=== PATIENT | female | born 1940 | race Caucasian/White ===

== ENCOUNTER → 2019-01-08 10:32 | Outpatient (CLI) | payer MEDICARE, SELFPAY ==
[2019-01-08 12:37] LABS: Add Manual Diff / Slide Review NO; Basophils Absolute Auto 0 /uL (0-100); Basophils Percent Auto 0.5 % (0-2); Eosinophils Absolute Auto 100 /uL (0-450); Eosinophils Percent Auto 1.3 % (2-4); Hemoglobin 16.1 g/dL (12.0-16.0); Lymphocytes Absolute Auto 1900 /uL (1100-4500); Lymphocytes Percent Auto 29.6 % (25-40); Mean Corpuscular HGB Conc 33.6 % (30-36); Mean Corpuscular Hemoglobin 29.6 PG (26-34); Monocytes Absolute Auto 500 /uL (0-900); Monocytes Percent Auto 8.7 % (3-14); Neutrophils Absolute Auto 3800 /uL (1500-7000); Neutrophils Percent Auto 59.9 % (50-75); Platelet Count 305 X10^3/uL (150-400); Red Blood Cell Count 5.46 X10^6/uL (4.0-5.2); Red Cell Distribution Width 13.1 % (11.6-14.8); White Blood Cell Count 6.3 X10^3/uL (4.5-11.0)
[2019-01-08 13:24] LABS: Cholesterol 227 mg/dL (140-199); HDL Cholesterol 55 mg/dL (40-60); LDL Cholesterol Calculated 146 mg/dL (<100); Triglycerides 132 mg/dL (35-150)
[2019-01-08 13:50] LABS: Alanine Aminotransferase 31 IU/L (9-52); Albumin 4.9 g/dL (3.5-5.0); Albumin Globulin Ratio 1.8 (1.0-2.8); Alkaline Phosphatase 78 U/L (38-126); Aspartate Aminotransferase 23 IU/L (14-36); BUN Creatinine Ratio 24.3 (6-22); Bilirubin Total 0.9 mg/dL (0.2-1.3); Blood Urea Nitrogen 17 mg/dL (7-17); Calcium 10.2 mg/dL (8.4-10.2); Carbon Dioxide 29 mmol/L (22-32); Chloride 91 mmol/L (98-107); Estimated Glomerular Filt Rate > 60.0 mL/min (>60); Globulin 2.8 g/dL (1.7-4.1); Glucose 99 mg/dL (80-110); HEMOLYSIS < 15 (0-50); Potassium 5.1 mmol/L (3.4-5.1); Sodium 132 mmol/L (137-145); Total Protein 7.7 g/dL (6.3-8.2)
[2019-01-08 14:21] LABS: Carcinoembryonic Antigen 2.4 ng/mL (0.1-3.0)
[2019-01-08 17:34] LABS: Vitamin D 25 Hydroxy (D3) 19.2 ng/mL (30.0-100.0)
== END ==
PROVIDERS: Internal Medicine Hematology & Oncology; PCP Student in an Organized Health Care Education/Training Program; Visit Provider Internal Medicine Hematology & Oncology
DX: E55.9 Vitamin D deficiency, unspecified (principal); Z13.220 Encounter for screening for lipoid disorders; C18.9 Malignant neoplasm of colon, unspecified; Z85.038 Personal history of other malignant neoplasm of large intestine
CPT/HCPCS: 36415; 80053; 80061; 82306; 82378; 85025

== ENCOUNTER → 2019-04-11 07:20 | Outpatient (CLI) | payer MEDICARE, SELFPAY ==
[2019-04-11 08:47] LABS: Alanine Aminotransferase 18 IU/L (9-52); Albumin 4.7 g/dL (3.5-5.0); Albumin Globulin Ratio 1.7 (1.0-2.8); Alkaline Phosphatase 72 U/L (38-126); Aspartate Aminotransferase 26 IU/L (14-36); Bilirubin Total 1.1 mg/dL (0.2-1.3); Bilirubin Unconjugated 0.9 mg/dL (0.0-1.1); Cholesterol 188 mg/dL (140-199); Globulin 2.7 g/dL (1.7-4.1); HDL Cholesterol 45 mg/dL (40-60); HEMOLYSIS < 15 (0-50); LDL Cholesterol Calculated 114 mg/dL (<100); Total Protein 7.4 g/dL (6.3-8.2); Triglycerides 144 mg/dL (35-150)
[2019-04-11 08:55] LABS: Vitamin D 25 Hydroxy (D3) 37.3 ng/mL (30.0-100.0)
== END ==
PROVIDERS: PCP Student in an Organized Health Care Education/Training Program; Visit Provider Student in an Organized Health Care Education/Training Program
DX: E55.9 Vitamin D deficiency, unspecified (principal); E78.2 Mixed hyperlipidemia; Z79.899 Other long term (current) drug therapy
CPT/HCPCS: 36415; 80061; 80076; 82306

== ENCOUNTER → 2019-08-02 09:26 | Outpatient (CLI) | payer MEDICARE, SELFPAY ==
--- NOTE | 2019-08-02 | DI.MG.S_ITS ---
BILATERAL DIGITAL SCREENING MAMMOGRAM 3D/2D WITH CAD: 08/02/2019 CLINICAL: Routine screening. Comparison is made to exams dated: 09/07/2017 mammogram, 08/11/2016 mammogram, and 05/26/2015 mammogram - [facility]. The tissue of both breasts is heterogeneously dense. This may lower the sensitivity of mammography. Current study was also evaluated with a Computer Aided Detection (CAD) system. No significant masses, calcifications, or other findings are seen in either breast. There has been no significant interval change. IMPRESSION: NEGATIVE There is no mammographic evidence of malignancy. A 1 year screening mammogram is recommended. This exam was interpreted at Station ID: [id number]. NOTE: For mammograms, a report in lay terms will be sent to the patient. Approximately 15% of breast malignancies will not be visualized mammographically. In the management of a palpable breast mass, a negative mammogram must not discourage biopsy of a clinically suspicious lesion. Electronically Signed By: Ashli casanova/belen:08/02/2019 09:56:13 letter sent: Normal Exam ACR BI-RADS Category 1: Negative 3341F
== END ==
PROVIDERS: PCP Student in an Organized Health Care Education/Training Program; Visit Provider Student in an Organized Health Care Education/Training Program
DX: Z12.31 Encounter for screening mammogram for malignant neoplasm of breast (principal)
CPT/HCPCS: 77063; 77067

== ENCOUNTER → 2020-10-11 09:04 | Outpatient (CLI) | payer MEDICARE, SELFPAY ==
--- NOTE | 2020-10-11 | DI.MG.S_ITS ---
BILATERAL DIGITAL SCREENING MAMMOGRAM 3D/2D WITH CAD: 10/11/2020 CLINICAL: Routine screening. Comparison is made to exams dated: 08/02/2019 mammogram, 09/07/2017 mammogram, and 08/11/2016 mammogram - [facility]. The tissue of both breasts is heterogeneously dense. This may lower the sensitivity of mammography. Current study was also evaluated with a Computer Aided Detection (CAD) system. There are benign vascular calcifications in the right breast. No significant masses, calcifications, or other findings are seen in either breast. There has been no significant interval change. IMPRESSION: BENIGN There is no mammographic evidence of malignancy. A 1 year screening mammogram is recommended. This exam was interpreted at Station ID: [id number]. NOTE: For mammograms, a report in lay terms will be sent to the patient. Approximately 15% of breast malignancies will not be visualized mammographically. In the management of a palpable breast mass, a negative mammogram must not discourage biopsy of a clinically suspicious lesion. Electronically Signed By: David Campos acr/belen:10/12/2020 18:51:10 letter sent: Normal Exam ACR BI-RADS Category 2: Benign Finding(s) 3342F
== END ==
PROVIDERS: PCP Internal Medicine; Referring Provider Internal Medicine; Visit Provider Internal Medicine
DX: Z12.31 Encounter for screening mammogram for malignant neoplasm of breast (principal)
CPT/HCPCS: 77063; 77067

== ENCOUNTER 2021-11-04 09:27 | Emergency (ER) | payer MEDICARE, SELFPAY ==
[2021-11-04] VITALS (14 sets, daily range): BP systolic 138–197; BP diastolic 66–84; PULSE 48–63; RESP 17–23; TEMP 36.3; O2SAT 95–99; BMI 21.2
--- NOTE | 2021-11-04 09:36 | ED.GENADULT ---
HPI - General Adult General Chief complaint: Syncope Stated complaint: Near Syncope / Weakness Time Seen by Provider: 11/04/21 09:36 History of Present Illness HPI narrative: 81-year-old woman with a history of colon cancer post chemo and radiation, hypertension, presents complaining of global weakness. She states that for the last 3 days she has had a minor cough, runny nose, some diarrhea yesterday. No headache, nausea, vomiting, palpitations, chest pain, dyspnea, orthopnea, abdominal pain, flank pain, lower extremity weakness, focal neurologic findings. She has had 2 COVID vaccination shots to date. Related Data Previous Rx's Medication Instructions Recorded atenolol 50 mg tablet 25 mg PO QDAY #90 tab 04/09/21 lisinopril 20 1 tab PO DAILY #90 tab 04/09/21 mg-hydrochlorothiazide 25 mg tablet lisinopril 20 mg tablet 20 mg PO DAILY #30 tab 11/04/21 Allergies Allergy/AdvReac Type Severity Reaction Status Date / Time Iodine and Iodide Containing Allergy Mild Verified 11/04/21 09:41 Produc [IODINE AND IODIDE CONTAINING PRODUC] Review of Systems Review of Systems Narrative: Remainder of complete review of systems is otherwise unremarkable except for that included in the HPI. 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 Able to give a complete and coherent history. Well-nourished well-developed HEENT: Moist mucous membranes, normal sclera with reactive pupils, Neck: No JVD, supple Respiratory: Lungs are clear to auscultation, no wheezing no rales no rhonchi. Full and symmetrical air movement Cardiac: Regular rate and rhythm no murmurs no bruits Abdomen: Soft, nontender, good bowel tones, no flank pain Skin: Warm and dry, no rashes Neurologic: Minor global weakness but otherwise Grossly neurologically intact with no obvious asymmetries or abnormalities Extremities: No trauma, well perfused, no lower extremity edema Psych: Cooperative, appropriate insight and affect Initial Vital Signs Initial Vital Signs: Vital Signs Temperature 97.3 F L 11/04/21 09:26 Pulse Rate 49 L 11/04/21 09:26 Respiratory Rate 17 11/04/21 09:26 Blood Pressure 180/80 H 11/04/21 09:26 Pulse Oximetry 96 11/04/21 09:26 Course Orders Ordered: ED Orders 11/04/21 09:20 Complete Blood Count AUTO DIFF Stat Comprehensive Metabolic Panel Stat Lactate (Lactic Acid) Stat Lipase Stat Magnesium Stat NT-proBNP (BNP-Adult 18+) Stat Partial Thromboplastin Time Stat Prothrombin Time INR Stat Troponin & CK Cardiac Panel Stat 11/04/21 09:35 COVID19 -Nasal swab/Pre-Proc Stat 11/04/21 09:37 XR chest 1V Stat EKG-12 Lead Stat 11/04/21 11:10 Blood Culture Stat Discontinued Medications Sodium Chloride (Normal Saline 0.9%) 1,000 mls @ 1,000 mls/hr IV BOLUS ONE Stop: 11/04/21 10:47 Last Infusion: 11/04/21 13:12 Dose: 0 mls/hr Documented by: Admin: 11/04/21 10:05 Dose: 1,000 mls/hr Documented by: BRAD Ondansetron HCl (Ondansetron 4 Mg/2 Ml Inj) 4 mg IV NOW ONE Stop: 11/04/21 10:25 Last Admin: 11/04/21 10:56 Dose: 4 mg Documented by: BRAD Potassium Chloride (Potassium Chloride 20 Meq Tab) 40 meq PO NOW ONE Stop: 11/04/21 10:25 Last Admin: 11/04/21 10:56 Dose: 40 meq Documented by: BRAD Vital Signs Vital signs: Vital Signs - 8 hr 11/04/21 09:26 11/04/21 09:34 11/04/21 10:00 Temperature 97.3 F L Pulse Rate 49 L 48 L 50 L Respiratory Rate 17 22 22 Blood Pressure 180/80 H 180/80 H Pulse Oximetry 96 95 99 11/04/21 10:01 11/04/21 10:30 11/04/21 11:00 Temperature Pulse Rate 51 L 53 L 56 L Respiratory Rate 23 20 23 Blood Pressure 164/70 H 172/74 H 167/76 H Pulse Oximetry 98 99 99 11/04/21 11:30 11/04/21 12:00 11/04/21 12:39 Temperature Pulse Rate 58 L 63 60 Respiratory Rate 21 18 Blood Pressure 174/74 H 138/66 Pulse Oximetry 99 98 95 11/04/21 12:40 11/04/21 12:41 Temperature Pulse Rate 63 61 Respiratory Rate 21 21 Blood Pressure 197/81 H 189/84 H Pulse Oximetry 98 98 Medical Decision Making Lab Data Result diagrams: 11/04/21 09:20 11/04/21 09:20 Labs: Lab Results 11/04/21 11/04/21 11/04/21 Range/Units 09:20 09:20 09:20 WBC 5.6 (4.5-11.0) X10^3/uL RBC 5.44 H (4.0-5.2) X10^6/uL Hgb 16.1 H (12.0-16.0) g/dL Hct 46.0 (36-46) % MCV 84.6 (80-100) fL MCH 29.6 (26-34) PG MCHC 35.0 (30-36) % RDW 12.9 (11.6-14.8) % Plt Count 240 (150-400) X10^3/uL Neut % (Auto) 69.6 (50-75) % Lymph % (Auto) 15.5 L (25-40) % Guthrie % (Auto) 14.6 H (3-14) % Eos % (Auto) 0.1 L (2-4) % Baso % (Auto) 0.2 (0-2) % Neut # (Auto) 3900 (4634-8628) /uL Lymph # (Auto) 900 L (1983-6939) /uL Guthrie # (Auto) 800 (0-900) /uL Eos # (Auto) 0 (0-450) /uL Baso # (Auto) 0 (0-100) /uL PT 12.8 H (10.1-12.7) SECONDS INR 1.2 (0.9-1.3) APTT 27 (26.4-36.2) SECONDS Sodium 125 L (137-145) mmol/L Potassium 3.1 L (3.4-5.1) mmol/L Chloride 84 L (98-107) mmol/L Carbon Dioxide 35 H (22-32) mmol/L BUN 10 (7-17) mg/dL Creatinine 0.60 (0.52-1.04) mg/dL Estimated GFR > 60.0 (>60) mL/min BUN/Creatinine Ratio 16.7 (6-22) Glucose 139 H (80-110) mg/dL Lactate (0.7-2.1) mmol/L Calcium 9.1 (8.4-10.2) mg/dL Magnesium 2.1 (1.6-2.3) mg/dL Total Bilirubin 1.2 (0.2-1.3) mg/dL AST 41 H (14-36) IU/L ALT 23 (<35) IU/L Alkaline Phosphatase 67 (38-126) U/L Total Creatine Kinase 59 (30-135) U/L CK-MB (CK-2) TNP CK-MB (CK-2) Rel Index TNP Troponin I < 0.012 (0.01-0.034) ng/mL NT-Pro-B Natriuret Pep (<450) pg/mL Total Protein 7.5 (6.3-8.2) g/dL Albumin 4.4 (3.5-5.0) g/dL Globulin 3.1 (1.7-4.1) g/dL Albumin/Globulin Ratio 1.4 (1.0-2.8) Lipase 65 (23-300) U/L SARS-CoV-2 (PCR) (Negative) 11/04/21 11/04/21 11/04/21 Range/Units 09:20 09:20 09:35 WBC (4.5-11.0) X10^3/uL RBC (4.0-5.2) X10^6/uL Hgb (12.0-16.0) g/dL Hct (36-46) % MCV (80-100) fL MCH (26-34) PG MCHC (30-36) % RDW (11.6-14.8) % Plt Count (150-400) X10^3/uL Neut % (Auto) (50-75) % Lymph % (Auto) (25-40) % Guthrie % (Auto) (3-14) % Eos % (Auto) (2-4) % Baso % (Auto) (0-2) % Neut # (Auto) (0225-0045) /uL Lymph # (Auto) (8706-0677) /uL Guthrie # (Auto) (0-900) /uL Eos # (Auto) (0-450) /uL Baso # (Auto) (0-100) /uL PT (10.1-12.7) SECONDS INR (0.9-1.3) APTT (26.4-36.2) SECONDS Sodium (137-145) mmol/L Potassium (3.4-5.1) mmol/L Chloride (98-107) mmol/L Carbon Dioxide (22-32) mmol/L BUN (7-17) mg/dL Creatinine (0.52-1.04) mg/dL Estimated GFR (>60) mL/min BUN/Creatinine Ratio (6-22) Glucose (80-110) mg/dL Lactate 1.4 (0.7-2.1) mmol/L Calcium (8.4-10.2) mg/dL Magnesium (1.6-2.3) mg/dL Total Bilirubin (0.2-1.3) mg/dL AST (14-36) IU/L ALT (<35) IU/L Alkaline Phosphatase (38-126) U/L Total Creatine Kinase (30-135) U/L CK-MB (CK-2) CK-MB (CK-2) Rel Index Troponin I (0.01-0.034) ng/mL NT-Pro-B Natriuret Pep 380 (<450) pg/mL Total Protein (6.3-8.2) g/dL Albumin (3.5-5.0) g/dL Globulin (1.7-4.1) g/dL Albumin/Globulin Ratio (1.0-2.8) Lipase (23-300) U/L SARS-CoV-2 (PCR) Positive H (Negative) Imaging Data Chest x-ray: Radiologist's Impression: FINDINGS:? ? Surgical changes and devices:? None.? ? Lungs and pleura:? There is mild bibasilar predominant reticulonodular pulmonary opacity. ?This is unchanged.? No pleural effusions or pneumothorax.? ? Mediastinum:? Mediastinal contours appear normal.? Heart size is normal.? ? Bones and chest wall:? No suspicious bony lesions.? Overlying soft tissues appear unremarkable.? ? IMPRESSION:? No acute process.? No change in mild pulmonary fibrosis. ? ? Dictated by: Matias Borrego M.D. on 11/04/2021 at 10:10 ? ? ECG Data Interpretation: Sinus rhythm at a rate of 50 (patient is on atenolol and just took her morning dose) Left axis deviation with left bundle-branch block No acute ischemic changes MDM Narrative Medical decision making narrative: 81-year-old woman with minimal medical issues 2 COVID vaccines but not boosted with mild cough runny nose and now significant weakness and COVID positive. She is not febrile and oxygen saturations in room air are 96%. No significant findings on chest x-ray. She is hyponatremic with sodium of 125 and potassium is low at 3.1. She is on lisinopril 20/hydrochlorothiazide 25 mg. I suspect that the acute illness, the diarrhea and the hydrochlorothiazide if all contributed to the mild hyponatremia and hypokalemia. She has been given a L of fluid oral potassium and has been able to walk to the bathroom. She feels that she and her can manage her symptoms at home at this time and is comfortable with home discharge. She is somewhat anxious that she will get dizzy and have another near syncopal episode. Will ask her to stop the combination lisinopril hydrochlorothiazide, switch to plain lisinopril continue with the usual atenolol schedule an appointment with her primary care physician in approximately 2 weeks, reviewed symptomatic reasons to return because of her COVID. If she has worsening symptoms I encouraged her to return as well. At this point I do believe she is safe for home discharge Discharge Plan Departure Patient Disposition: Home Clinical Impression: COVID-19, Weakness, Acute hyponatremia, Acute hypokalemia, Adverse reaction to drug in therapeutic use Instructions: DI for Hyponatremia, DI for COVID-19 (Suspected or Confirmed ) Activity Restrictions/Additional Instructions: Thank you for coming in today You do have COVID however your symptoms are mild, your oxygenation level is appropriate in you do not need to be in the hospital. Thank you very much for being vaccinated Between your acute COVID symptoms, the mild diarrhea and the hydrochlorothiazide component of your blood pressure medication your salt and potassium levels are slightly low and I think this is contributing to your overall weakness. I have given you a L of fluid to replace the salt as well as a potassium tablet. Your kidney function remains quite healthy. I am going to suggest that you stop the combination lisinopril hydrochlorothiazide. I am going to give you a prescription for 20 mg of lisinopril alone to continue with blood pressure control but not continue to cause the low salt and potassium levels. This prescription was electronically transmitted to [email or web address] today. Please schedule an appointment with your primary care physician in approximately 2 weeks to make sure that you are over your COVID infection, you are having no complications and to review blood pressure medications Please make sure that you are well hydrated, a little bit of salt is okay If you have worsening symptoms please return to the ER Prescriptions: New lisinopril 20 mg tablet 20 mg PO DAILY Qty: 30 0RF No Action lisinopril-hydrochlorothiazide 20-25 mg tablet 1 tab PO DAILY Qty: 90 3RF atenolol 50 mg tablet 25 mg PO QDAY Qty: 90 3RF Referrals: Silviano Mendoza MD [Primary Care Provider] -
--- NOTE | 2021-11-04 09:37 | DI.RAD.S_ITS ---
PROCEDURE: XR CHEST 1V INDICATIONS: chest pain TECHNIQUE: One view of the chest was acquired. COMPARISON: [facility], , CHEST 1 VIEW, 01/05/2017, 9:40. FINDINGS: Surgical changes and devices: None. Lungs and pleura: There is mild bibasilar predominant reticulonodular pulmonary opacity. This is unchanged. No pleural effusions or pneumothorax. Mediastinum: Mediastinal contours appear normal. Heart size is normal. Bones and chest wall: No suspicious bony lesions. Overlying soft tissues appear unremarkable. IMPRESSION: No acute process. No change in mild pulmonary fibrosis. Dictated by: Matias Borrego M.D. on 11/04/2021 at 10:10 Approved by: Matias Borrego M.D. on 11/04/2021 at 10:11
[2021-11-04 09:46] LABS: Add Manual Diff / Slide Review NO; Basophils Absolute Auto 0 /uL (0-100); Basophils Percent Auto 0.2 % (0-2); Eosinophils Absolute Auto 0 /uL (0-450); Eosinophils Percent Auto 0.1 % (2-4); Hemoglobin 16.1 g/dL (12.0-16.0); Lymphocytes Absolute Auto 900 /uL (1100-4500); Lymphocytes Percent Auto 15.5 % (25-40); Mean Corpuscular Hemoglobin 29.6 PG (26-34); Mean Corpuscular Volume 84.6 fL (80-100); Monocytes Absolute Auto 800 /uL (0-900); Monocytes Percent Auto 14.6 % (3-14); Neutrophils Absolute Auto 3900 /uL (1500-7000); Neutrophils Percent Auto 69.6 % (50-75); Platelet Count 240 X10^3/uL (150-400); Red Blood Cell Count 5.44 X10^6/uL (4.0-5.2); Red Cell Distribution Width 12.9 % (11.6-14.8); White Blood Cell Count 5.6 X10^3/uL (4.5-11.0)
[2021-11-04 09:54] LABS: INR 1.2 (0.9-1.3); Prothrombin Time 12.8 SECONDS (10.1-12.7)
[2021-11-04 09:57] LABS: PTT Partial Thromboplastin Tim 27 SECONDS (26.4-36.2)
[2021-11-04 09:59] LABS: Lactate (Lactic Acid) 1.4 mmol/L (0.7-2.1)
[2021-11-04 10:01] LABS: Alanine Aminotransferase 23 IU/L (<35); Albumin 4.4 g/dL (3.5-5.0); Albumin Globulin Ratio 1.4 (1.0-2.8); Alkaline Phosphatase 67 U/L (38-126); Aspartate Aminotransferase 41 IU/L (14-36); BUN Creatinine Ratio 16.7 (6-22); Bilirubin Total 1.2 mg/dL (0.2-1.3); Blood Urea Nitrogen 10 mg/dL (7-17); Calcium 9.1 mg/dL (8.4-10.2); Carbon Dioxide 35 mmol/L (22-32); Chloride 84 mmol/L (98-107); Creatine Kinase 59 U/L (30-135); Estimated Glomerular Filt Rate > 60.0 mL/min (>60); Globulin 3.1 g/dL (1.7-4.1); Glucose 139 mg/dL (80-110); HEMOLYSIS 26 (0-50); Lipase 65 U/L (23-300); Magnesium 2.1 mg/dL (1.6-2.3); Potassium 3.1 mmol/L (3.4-5.1); Sodium 125 mmol/L (137-145); Total Protein 7.5 g/dL (6.3-8.2)
[2021-11-04] MEDS: SODIUM CHLORIDE 0.9% 1,000 ML 1000 ML IV (10:05)
[2021-11-04 10:09] LABS: NT-proBNP (BNP-Adult 18+) 380 pg/mL (<450)
[2021-11-04 10:12] LABS: Troponin I < 0.012 ng/mL (0.01-0.034)
[2021-11-04 10:26] LABS: COVID19 -Nasal RAPID POSITIVE (Negative)
[2021-11-04] MEDS: ONDANSETRON 4 MG/2 ML INJ IV (10:56)
[2021-11-04] MEDS: POTASSIUM CHLORIDE 20 MEQ TAB 40 MEQ PO (10:56)
== END 2021-11-04 13:52 | disposition home or self-care (01) ==
PROVIDERS: Emergency Provider Emergency Medicine; PCP Internal Medicine
DX: U07.1 COVID-19 (principal); E87.1 Hypo-osmolality and hyponatremia; E87.6 Hypokalemia; I10 Essential (primary) hypertension; I44.7 Left bundle-branch block, unspecified; T50.2X5A Adverse effect of carbonic-anhydrase inhibitors, benzothiadiazides and other diuretics, initial encounter
CPT/HCPCS: 36415; 71045; 80053; 82550; 83605; 83690; 83735; 83880; 84484; 85025; 85610; 85730; 87040; 87635; 93005; 96361; 96374; 99284; C9803; J2405

== ENCOUNTER → 2021-11-26 10:05 | Outpatient (CLI) | payer MEDICARE, SELFPAY ==
[2021-11-26 11:34] LABS: Alanine Aminotransferase 15 IU/L (<35); Albumin 4.6 g/dL (3.5-5.0); Albumin Globulin Ratio 1.4 (1.0-2.8); Alkaline Phosphatase 70 U/L (38-126); Aspartate Aminotransferase 25 IU/L (14-36); BUN Creatinine Ratio 14.8 (6-22); Blood Urea Nitrogen 9 mg/dL (7-17); Calcium 9.8 mg/dL (8.4-10.2); Carbon Dioxide 33 mmol/L (22-32); Chloride 97 mmol/L (98-107); Estimated Glomerular Filt Rate > 60.0 mL/min (>60); Globulin 3.2 g/dL (1.7-4.1); Glucose 111 mg/dL (80-110); HEMOLYSIS < 15 (0-50); Magnesium 2.2 mg/dL (1.6-2.3); Potassium 4.2 mmol/L (3.4-5.1); Sodium 136 mmol/L (137-145); Total Protein 7.8 g/dL (6.3-8.2)
== END ==
PROVIDERS: PCP Internal Medicine; Referring Provider Internal Medicine; Visit Provider Internal Medicine
DX: E87.6 Hypokalemia (principal); I10 Essential (primary) hypertension
CPT/HCPCS: 36415; 80053; 83735

== ENCOUNTER → 2022-08-30 09:12 | Outpatient (CLI) | payer MEDICARE, SELFPAY ==
[2022-08-30 10:58] LABS: COVID19 -Nasal RAPID Negative (Negative)
== END ==
PROVIDERS: PCP Internal Medicine; Visit Provider Surgery
DX: Z20.822 Contact with and (suspected) exposure to COVID-19 (principal); Z01.812 Encounter for preprocedural laboratory examination
CPT/HCPCS: 87635; C9803

== ENCOUNTER 2022-08-31 06:28 | Day surgery (SDC) | payer MEDICARE, SELFPAY ==
[2022-08-31] VITALS (15 sets, daily range): BP systolic 98–173; BP diastolic 36–83; PULSE 45–83; RESP 13–20; TEMP 36.2–37; O2SAT 97–99; BMI 21.6
[2022-08-31] MEDS: SODIUM CHLORIDE 0.9% 1,000 ML 150 ML IV (07:15)
--- NOTE | 2022-08-31 07:45 | PM.HP.1 ---
History of Present Illness History of Present Illness Date Patient Seen: 08/31/22 Time Patient Seen: 07:45 Chief complaint: SDC Narrative: 82 y.o woman hx of remote colon cancer with new change in bowel function here for diagnostic colonoscopy. Please refer to H&P July 2022 for further detail. No interval changes in health. 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 Essential hypertension (12/08/15) Grade I diastolic dysfunction History of colon cancer, stage III (~12/2015) Left bundle branch block Mixed hyperlipidemia (12/08/15) PVC (premature ventricular contraction) Vitamin D deficiency Surgical History S/P bilateral salpingo-oophorectomy (~05/2008) S/P right hemicolectomy (~05/2008) Status post biopsy (08/26/14) Family & Social History Family History Brother Colon cancer Social History: household members spouse lives independently Yes Tobacco & Substance use: Smoking Status Never smoker alcohol intake current alcohol intake frequency holiday/special occasion Substance Use Type does not use Meds Home Medications and Allergies Home Medications Medication Instructions Recorded Confirmed Type lisinopril 20 mg tablet 20 mg PO DAILY #90 tabs 11/26/21 08/31/22 Rx atenolol 50 mg tablet 25 mg PO QDAY #90 tabs 06/23/22 08/31/22 Rx Allergies Allergy/AdvReac Type Severity Reaction Status Date / Time Iodine and Iodide Containing Allergy Mild Verified 08/31/22 07:29 Produc [IODINE AND IODIDE CONTAINING PRODUC] Exam Vital Signs (past 8 hours): - 08/31/22 07:32 Temperature 98.6 F Pulse Rate 83 Respiratory Rate 16 Blood Pressure 173/83 H Pulse Oximetry 99 Oxygen Delivery Method Room Air Oxygen Delivery Method Room Air Narrative Exam Narrative: Gen-Elderly woman alert and oriented Assessment & Plan Assessment & Plan narrative: 82F hx of colon cancer with change in bowel function here for diagnostic colonoscopy. Technical details were discussed. Risks, benefits, alternatives explained. Risks including but not limited to myocardial infarction, aspiration, bleeding, pain, missed lesion, incomplete examination, need for further radiographic studies, colonic perforation, and need for major abdominal surgery were discussed. All questions were answered to their satisfaction, and they are in agreement with this plan. Time Spent With Patient Critical Care time: I spent a total of [] minutes of critical care time on this patient's care today; this time is exclusive of procedural time.
[2022-08-31] MEDS: ONDANSETRON 4 MG/2 ML INJ IV (07:54)
[2022-08-31] MEDS: MIDAZOLAM 5 MG/5 ML VIAL 4 MG IV (08:03)
[2022-08-31] MEDS: fentaNYL 100 MCG/2 ML INJ 75 MCG IV (08:05)
--- NOTE | 2022-08-31 08:12 | P.OP.COLON_ITS ---
Operative Date/Time/Diagnoses Date of procedure: 08/31/22 Time of procedure: 08:13 Pre-op diagnosis: Change in bowel habit. History of colon cancer Post-op diagnosis: same Procedure & Clinicians Study performed: Colonoscopy Same procedure as scheduled: Yes Indications: History of colon cancer. Change in bowel function Surgeon: Mic Deutsch Procedure Notes Procedure in detail: Medications: Conscious sedation using 4mg IV midazolam and 75mcg IV of fentanyl The history and physical was performed/updated and the patient is ASA class is 2. The procedure was discussed in detail with the patient. Potential risks complications including infection, bleeding, missed diagnosis, perforation, need for surgery, and were explained. Their questions were answered and informed consent was obtained. Patient was brought to the procedure room and placed standard monitoring equipment. The patient's vital signs were monitored continuously throughout the entire procedure. Prior to starting time-out was performed. The patient was p laced in the left lateral recumbent position. Procedural sedation was administered. Examination began with a thorough inspection of the perianal area there was no evidence of fissures, fistulae, external hemorrhoids or cutaneous malignancy. The colonoscopy scope was then placed into the anal canal and was advanced to the ileo colonic anastomosis. The anastomosis was normal. The scope was then slowly withdrawn examining colon thoroughly in all directions, irrigating it of any residual stool. FINDINGS 1. Normal ileocolonic anastomosis. 2. No evidence of recurrent colon cancer. 3. Tortuous colon The patient tolerated the procedure well. They will be discharged once criteria are met. The prep was of fair quality. The withdrawl time was 6 minutes. The sedation time was 18 minutes. Specimen(s): none sent Complications: none Impression: Normal colon status post right hemicolectomy Post-procedure Recommendations: Colonoscopy in 5 years Disposition: same day surgery
[2022-08-31] MEDS: ONDANSETRON 4 MG ODT SL (10:14)
== END 2022-08-31 10:17 | disposition home or self-care (01) ==
PROVIDERS: PCP Internal Medicine; Referring Provider Surgery; Visit Provider Surgery
PROC: 0DJD8ZZ Inspection of Lower Intestinal Tract, Via Natural or Artificial Opening Endoscopic (ICD-10-PCS; CPT 45378; principal; 2022-08-31 07:45)
DX: R19.4 Change in bowel habit (principal); Z85.038 Personal history of other malignant neoplasm of large intestine
CPT/HCPCS: 45378; 99152; J2250; J2405; J3010

== ENCOUNTER 2023-05-20 04:52 | Emergency (ER) | payer MEDICARE, SELFPAY ==
[2023-05-20] VITALS (9 sets, daily range): BP systolic 160–199; BP diastolic 70–93; PULSE 63–95; RESP 20; TEMP 36.5; O2SAT 95–100; BMI 22.5
[2023-05-20] MEDS: SODIUM CHLORIDE 0.9% 1,000 ML 1000 ML IV (05:36)
[2023-05-20] MEDS: methylPREDNISolone 125 MG/2 ML VIAL IV (05:36)
[2023-05-20] MEDS: FAMOTIDINE 20 MG/2 ML VIAL IV (05:37)
--- NOTE | 2023-05-20 05:41 | ED.ALLEREA ---
HPI - Allergic Reaction <Conrad Bee MD - Last Filed: 05/31/23 07:21> General Chief complaint: Allergic Reaction Stated complaint: welts all over body Time Seen by Provider: 05/20/23 05:21 Source: patient and family Mode of arrival: Family Vehicle History of Present Illness HPI narrative: Patient here with for complaints of body wide rash itching. No oral swelling tongue swelling lip swelling. No trouble breathing. This started Tuesday night/Tuesday morning of this week. Patient and state they can not really recall anything new in her life. She has been eating fruits this week but that is not new. No new detergents soaps lotions perfumes clothing or foods. She has been trying [id number] Benadryl without resolved. No others with this rash Related Data Previous Rx's Medication Instructions Recorded atenolol 50 mg tablet 25 mg PO QDAY #90 tabs 12/21/22 amlodipine 5 mg tablet 5 mg PO DAILY #90 tabs 05/30/23 Allergies Allergy/AdvReac Type Severity Reaction Status Date / Time Iodine and Iodide Containing Allergy Mild Verified 05/30/23 09:52 Produc [IODINE AND IODIDE CONTAINING PRODUC] Review of Systems <Conrad Bee MD - Last Filed: 05/31/23 07:21> Review of Systems Narrative: GENERAL: negative chills, fatigue, malaise, fever, sweats. 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 COVID-19 Essential hypertension (12/08/15) Grade I diastolic dysfunction History of colon cancer, stage III (~12/2015) Left bundle branch block Mixed hyperlipidemia (12/08/15) Plantar fascial fibromatosis of left foot PVC (premature ventricular contraction) Vitamin D deficiency Surgical History S/P bilateral salpingo-oophorectomy (~05/2008) S/P right hemicolectomy (~05/2008) Status post biopsy (08/26/14) Family History Brother Colon cancer Social History marital status: household members: spouse lives independently: Yes occupational status: previously employed Smoking Status: Never smoker alcohol intake: current Smoking Status: Never smoker alcohol intake frequency: holidays/special occasions only Substance Use Type: does not use Exam <Conrad Bee MD - Last Filed: 05/31/23 07:21> Narrative Exam Narrative: GENERAL: in no distress, not toxic not dyspneic HEAD: Normocephalic. EYES: Pupils equal round ENT: Mucous membranes moist. No lip swelling no intraoral swelling no tongue elevation or edema no drooling. NECK: Trachea midline. CARDIOVASCULAR: Regular rate and rhythm without murmurs RESPIRATORY: Clear to auscultation. Breath sounds equal bilaterally. No wheezes, rales, or rhonchi. Speaking full sentences GASTROINTESTINAL: Abdomen soft, non-tender, hives on abdomen BACK: No flank tenderness. NEURO: AOx4. SKIN: Warm and dry, there is diffuse scattered hives on arms and face and abdomen PSYCH: Not anxious, is cooperative Initial Vital Signs Initial Vital Signs: Vital Signs Temperature 97.7 F 05/20/23 05:03 Pulse Rate 95 H 05/20/23 05:03 Respiratory Rate 20 05/20/23 05:03 Blood Pressure 199/93 H 05/20/23 05:03 Pulse Oximetry 96 05/20/23 05:03 Oxygen Delivery Method Room Air 05/20/23 05:03 <Mariela Garcia DO - Last Filed: 05/20/23 09:06> Initial Vital Signs Initial Vital Signs: Vital Signs Temperature 97.7 F 05/20/23 05:03 Pulse Rate 95 H 05/20/23 05:03 Respiratory Rate 20 05/20/23 05:03 Blood Pressure 199/93 H 05/20/23 05:03 Pulse Oximetry 96 05/20/23 05:03 Oxygen Delivery Method Room Air 05/20/23 05:03 Course <Conrad Bee MD - Last Filed: 05/31/23 07:21> Orders Ordered: Discontinued Medications Diphenhydramine HCl (Diphenhydramine 50 Mg/Ml Vial) 12.5 mg IV NOW ONE Stop: 05/20/23 06:41 Last Admin: 05/20/23 06:46 Dose: 12.5 mg Documented By: FILIBERTO Famotidine (Famotidine 20 Mg/2 Ml Vial) 20 mg IV NOW JG Last Admin: 05/20/23 05:37 Dose: 20 mg Documented By: FILIBERTO Sodium Chloride (Normal Saline 0.9%) 1,000 mls @ 1,000 mls/hr IV BOLUS ONE Stop: 05/20/23 06:21 Last Infusion: 05/20/23 06:31 Dose: 0 mls/hr Documented By: Admin: 05/20/23 05:36 Dose: 1,000 mls/hr Documented By: FILIBERTO Methylprednisolone (Methylprednisolone 125 Mg/2 Ml Vial) 125 mg IV NOW ONE Stop: 05/20/23 05:23 Last Admin: 05/20/23 05:36 Dose: 125 mg Documented By: FILIBERTO Vital Signs Vital signs: Vital Signs - 8 hr 05/20/23 05:03 05/20/23 05:22 05/20/23 05:30 Temperature 97.7 F Pulse Rate 95 H 85 73 Respiratory Rate 20 Blood Pressure 199/93 H Pulse Oximetry 96 95 100 Oxygen Delivery Method Room Air 05/20/23 05:53 05/20/23 05:53 05/20/23 06:00 Temperature Pulse Rate 70 Respiratory Rate Blood Pressure 167/70 H 163/74 H Pulse Oximetry 100 Oxygen Delivery Method Room Air 05/20/23 06:00 05/20/23 06:30 05/20/23 06:30 Temperature Pulse Rate 76 69 Respiratory Rate Blood Pressure 173/90 H Pulse Oximetry 99 100 Oxygen Delivery Method Room Air Room Air 05/20/23 07:00 05/20/23 07:00 05/20/23 07:30 Temperature Pulse Rate 65 Respiratory Rate Blood Pressure 160/72 H 164/78 H Pulse Oximetry 99 Oxygen Delivery Method Room Air 05/20/23 07:30 05/20/23 08:00 05/20/23 08:00 Temperature Pulse Rate 66 63 Respiratory Rate Blood Pressure 177/78 H Pulse Oximetry 99 98 Oxygen Delivery Method <Mariela Garcia, DO - Last Filed: 05/20/23 09:06> Orders Ordered: Discontinued Medications Diphenhydramine HCl (Diphenhydramine 50 Mg/Ml Vial) 12.5 mg IV NOW ONE Stop: 05/20/23 06:41 Last Admin: 05/20/23 06:46 Dose: 12.5 mg Documented By: FILIBERTO Famotidine (Famotidine 20 Mg/2 Ml Vial) 20 mg IV NOW JG Last Admin: 05/20/23 05:37 Dose: 20 mg Documented By: FILIBERTO Sodium Chloride (Normal Saline 0.9%) 1,000 mls @ 1,000 mls/hr IV BOLUS ONE Stop: 05/20/23 06:21 Last Infusion: 05/20/23 06:31 Dose: 0 mls/hr Documented By: Admin: 05/20/23 05:36 Dose: 1,000 mls/hr Documented By: FILIBERTO Methylprednisolone (Methylprednisolone 125 Mg/2 Ml Vial) 125 mg IV NOW ONE Stop: 05/20/23 05:23 Last Admin: 05/20/23 05:36 Dose: 125 mg Documented By: FILIBERTO Vital Signs Vital signs: Vital Signs - 8 hr 05/20/23 05:03 05/20/23 05:22 05/20/23 05:30 Temperature 97.7 F Pulse Rate 95 H 85 73 Respiratory Rate 20 Blood Pressure 199/93 H Pulse Oximetry 96 95 100 Oxygen Delivery Method Room Air 05/20/23 05:53 05/20/23 05:53 05/20/23 06:00 Temperature Pulse Rate 70 Respiratory Rate Blood Pressure 167/70 H 163/74 H Pulse Oximetry 100 Oxygen Delivery Method Room Air 05/20/23 06:00 05/20/23 06:30 05/20/23 06:30 Temperature Pulse Rate 76 69 Respiratory Rate Blood Pressure 173/90 H Pulse Oximetry 99 100 Oxygen Delivery Method Room Air Room Air 05/20/23 07:00 05/20/23 07:00 05/20/23 07:30 Temperature Pulse Rate 65 Respiratory Rate Blood Pressure 160/72 H 164/78 H Pulse Oximetry 99 Oxygen Delivery Method Room Air 05/20/23 07:30 05/20/23 08:00 05/20/23 08:00 Temperature Pulse Rate 66 63 Respiratory Rate Blood Pressure 177/78 H Pulse Oximetry 99 98 Oxygen Delivery Method MDM - Allergic Reaction <Conrad Bee MD - Last Filed: 05/31/23 07:21> [facility] Narrative Medical decision making narrative: Patient here with for complaints of body wide rash itching. No oral swelling tongue swelling lip swelling. No trouble breathing. This started Tuesday/Tuesday of this week. Patient and state they can not really recall anything new in her life. She has been eating fruits this week but that is not new. No new detergents soaps lotions perfumes clothing or foods. She has been trying [id number] Benadryl without resolved. No others with this rash After history and exam Solu-Medrol Pepcid normal saline, patient took Benadryl at 1:00 a.m. [facility] CC: Rash itching Complicating co-morbidities: None Data collected from: Patient and Medical records reviewed: No recent visit for this complaint Differential considered: Includes but not limited to urticaria anaphylaxis food allergy contact dermatitis angioedema Exam documented above, pertinent findings include: Body wide hives Lab Test results independently reviewed as above. Pertinent findings: No labs indicated Treatments: Solu-Medrol Pepcid normal saline Re-evaluations: 6:41 a.m.. Patient states itching is starting to improve. Re-evaluation of rash still present on abdomen and arms. Face is improving Discussion: Diagnosis: 7:00 a.m.. Cristal: Sign out to Dr Garcia, reassess patient's allergic reaction. Patient has been given Solu-Medrol Benadryl and Pepcid. Patient is slowly starting to improve <Mariela Garcia DO - Last Filed: 05/20/23 09:06> [facility] Narrative Medical decision making narrative: Patient here with for complaints of body wide rash itching. No oral swelling tongue swelling lip swelling. No trouble breathing. This started Tuesday/Tuesday morning of this week. Patient and state they can not really recall anything new in her life. She has been eating fruits this week but that is not new. No new detergents soaps lotions perfumes clothing or foods. She has been trying [id number] Benadryl without resolved. No others with this rash After history and exam Solu-Medrol Pepcid normal saline, patient took Benadryl at 1:00 a.m. [facility] CC: Rash itching Complicating co-morbidities: None Data collected from: Patient and Medical records reviewed: No recent visit for this complaint Differential considered: Includes but not limited to urticaria anaphylaxis food allergy contact dermatitis angioedema Exam documented above, pertinent findings include: Body wide hives Lab Test results independently reviewed as above. Pertinent findings: No labs indicated Treatments: Solu-Medrol Pepcid normal saline Re-evaluations: 6:41 a.m.. Patient states itching is starting to improve. Re-evaluation of rash still present on abdomen and arms. Face is improving Discussion: Diagnosis: 7:00 a.m.. Cristal: Sign out to Dr Garcia, reassess patient's allergic reaction. Patient has been given Solu-Medrol Benadryl and Pepcid. Patient is slowly starting to improve 05/20/23 Jose: Patient signed out to myself, seen and evaluated by myself patient is starting to improve she feels much better. Sounds like several days of urticaria, unclear if allergic versus other source. She does note her daughter had similar changes in her 50s and was told that it was triggered by a virus. Patient has not had similar issues in the past. She is feeling much better her hives are starting to resolve. Patient would like to return home discussed continuing with oral prednisone, can continue Benadryl 1-2 tablets every 6 hours and can add an oral antihistamine such as Claritin or Zyrtec daily. Patient was asked to follow-up, discussed return precautions. Continue to monitor for any triggers she has not had any other than eating a lot of strawberries and aspirate which he is never had issues with couple days ago she has not had any new medications or any other obvious triggers that she or her family appreciate. Discharge Plan Departure Patient Disposition: Home Clinical Impression: Acute urticaria Instructions: DI for Hives Activity Restrictions/Additional Instructions: Follow-up for recheck or if your symptoms are not resolving completely. Please keep track of any potential triggers or causes. You can continue with Benadryl 1-2 tablets every 6 hours as needed. You can also take loratadine once daily and/or Zyrtec or a similar medication with the Benadryl and prednisone. Take prednisone once daily until gone. Prescription sent to [facility] in [place]. Please return for worsening symptoms, swelling of your lips, tongue or airway, chest pain or tightness, shortness breath, fevers, nausea or vomiting, diarrhea, changing rash, blistering or sloughing of skin or other new or concerning changes Prescriptions: No Action amlodipine 5 mg tablet 5 mg PO DAILY Qty: 90 3RF atenolol 50 mg tablet 25 mg PO QDAY Qty: 90 3RF Referrals: Silviano Mendoza MD [Primary Care Provider] - Stand Alone Forms: Patient Portal/API
[2023-05-20] MEDS: diphenhydrAMINE 50 MG/ML VIAL 12.5 MG IV (06:46)
== END 2023-05-20 08:10 | disposition home or self-care (01) ==
PROVIDERS: Emergency Provider Emergency Medicine; PCP Internal Medicine
DX: L50.8 Other urticaria (principal)
CPT/HCPCS: 96361; 96374; 96375; 99283; 99284; J1200; J2930

== ENCOUNTER 2023-05-22 20:37 | Emergency (ER) | payer MEDICARE, SELFPAY ==
[2023-05-22 20:46] VITALS: BP 212/99; PULSE 79; RESP 18; TEMP 36.6; O2SAT 99
--- NOTE | 2023-05-22 21:02 | PC.NURSE ---
Patient recently here for hives, given allergy cocktail in department with relief. Sent home with prednisone and educated to take zyrtec and benadryl. Followed up with Dr Mendoza who advised her to continue with medications and would potentially need to see an sales expert home theater. Reports that she had stopped taking the benadryl because she did not understand the written instructions. Wanted clarification on medications tonight. Once given education stated wanted to go home and would return if symptoms got worse. Patient reports that she is not having swelling of throat, lips, does not feel shortness of breath or difficulty breathing. Concern is with itching she is experiencing. Advised patient to stay for evaluation by provider but prefers to return home tonight. Educated patient to follow up with Dr Mendoza' office in the morning and to return if symptoms get worse. Patient acknowledged teaching.
--- NOTE | 2023-05-22 21:08 | PC.NURSE ---
late entry: patient called Emergency room asking for clarification on medications and discharge instructions. states she has been taking the prednisone and zyrtec with some relief the last 2 days but today she feels worse again and she is scared she needs to come back in. after extensive interview of patient medication regimen nurse discovered she has not been taking benadryl but only prednisone and zyrtec. pt thoroughly educated on continuing benadryl and zyrtec and prednisone as all three medications work in different ways and to make a follow up appt with PCP for this week to ensure improvement. patient told if she is still having troubles are believes she is getting worse, she should immediately return to the ER for re-evaluation. pt verbalized understanding of these instructions. instructions have been gone over with patient on phone multiple times since patient's discharge. notified charge nurse.
== END 2023-05-22 21:03 | disposition home or self-care (01) ==
PROVIDERS: Emergency Provider Emergency Medicine; PCP Internal Medicine
CPT/HCPCS: 99281

== ENCOUNTER → 2023-06-27 14:49 | Outpatient (CLI) | payer MEDICARE, SELFPAY ==
--- NOTE | 2023-06-27 14:50 | DI.RAD.S_ITS ---
PROCEDURE: XR HAND RT MIN 3V INDICATIONS: thumb pain TECHNIQUE: 3 views of the hand(s) acquired. COMPARISON: None. FINDINGS: Bones: No fractures or dislocations. 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 Carpal bones are normally aligned. No suspicious bony lesions. Soft tissues: No suspicious soft tissue calcifications. IMPRESSION: No acute bony abnormality. Diffuse degenerative change. Dictated by: Nicho Bryant M.D. on 06/27/2023 at 15:20 Approved by: Nicho Bryant M.D. on 06/27/2023 at 15:24
== END ==
PROVIDERS: PCP Internal Medicine; Referring Provider Internal Medicine; Visit Provider Internal Medicine
DX: M19.041 Primary osteoarthritis, right hand (principal); M79.644 Pain in right finger(s)
CPT/HCPCS: 73130

== ENCOUNTER → 2024-01-11 07:22 | Outpatient (CLI) | payer MEDICARE, SELFPAY ==
[2024-01-11 08:08] LABS: Add Manual Diff / Slide Review NO; Basophils Absolute Auto 0 /uL (0-100); Basophils Percent Auto 0.7 % (0-2); Eosinophils Absolute Auto 100 /uL (0-450); Eosinophils Percent Auto 1.8 % (2-4); Hematocrit 47.3 % (36-46); Hemoglobin 16.2 g/dL (12.0-16.0); Lymphocytes Absolute Auto 1900 /uL (1100-4500); Lymphocytes Percent Auto 31.7 % (25-40); Mean Corpuscular HGB Conc 34.2 % (30-36); Mean Corpuscular Volume 87.6 fL (80-100); Monocytes Absolute Auto 500 /uL (0-900); Monocytes Percent Auto 9.1 % (3-14); Neutrophils Absolute Auto 3300 /uL (1500-7000); Neutrophils Percent Auto 56.7 % (50-75); Platelet Count 266 X10^3/uL (150-400); Red Cell Distribution Width 13.5 % (11.6-14.8); White Blood Cell Count 5.9 X10^3/uL (4.5-11.0)
[2024-01-11 08:33] LABS: Alanine Aminotransferase 16 IU/L (<35); Albumin 4.5 g/dL (3.5-5.0); Albumin Globulin Ratio 1.6 (1.0-2.8); Alkaline Phosphatase 76 U/L (38-126); Aspartate Aminotransferase 27 IU/L (14-36); BUN Creatinine Ratio 26.3 (6-22); Bilirubin Total 1.2 mg/dL (0.2-1.3); Blood Urea Nitrogen 15 mg/dL (7-17); Calcium 9.2 mg/dL (8.4-10.2); Carbon Dioxide 30 mmol/L (22-32); Chloride 98 mmol/L (98-107); Cholesterol 201 mg/dL (140-199); Estimated Glomerular Filt Rate > 60 mL/min (>60); Globulin 2.8 g/dL (1.7-4.1); Glucose 100 mg/dL (80-110); HDL Cholesterol 55 mg/dL (40-60); HEMOLYSIS 18 (0-50); LDL Cholesterol Calculated 121 mg/dL (<100); Potassium 4.4 mmol/L (3.4-5.1); Sodium 133 mmol/L (137-145); Total Protein 7.3 g/dL (6.3-8.2); Triglycerides 126 mg/dL (35-150)
[2024-01-11 09:02] LABS: Carcinoembryonic Antigen 2.7 ng/mL (0.1-3.0)
[2024-01-11 09:03] LABS: TSH w/ Reflex to FT4 2.13 uIU/mL (0.47-4.68)
== END ==
PROVIDERS: PCP Internal Medicine; Referring Provider Internal Medicine; Visit Provider Internal Medicine
DX: I10 Essential (primary) hypertension (principal); Z85.038 Personal history of other malignant neoplasm of large intestine; D64.9 Anemia, unspecified
CPT/HCPCS: 36415; 80053; 80061; 82378; 84443; 85025

== ENCOUNTER → 2024-08-15 08:36 | Outpatient (CLI) | payer MEDICARE, SELFPAY ==
--- NOTE | 2024-08-15 | DI.MG.S_ITS ---
BILATERAL DIGITAL SCREENING MAMMOGRAM 3D/2D WITH CAD: 08/15/2024 CLINICAL: Routine screening. Comparison is made to exams dated: 10/11/2020 mammogram, 08/02/2019 mammogram, and 09/07/2017 mammogram - [facility]. The breasts are heterogeneously dense, which may obscure small masses (category c / 51-75% glandular tissue). Current study was also evaluated with a Computer Aided Detection (CAD) system. There are benign vascular calcifications in the right breast. No significant masses, calcifications, or other findings are seen in either breast. There has been no significant interval change. IMPRESSION: BENIGN There is no mammographic evidence of malignancy. A 1 year screening mammogram is recommended. Based on the Tyrer Cuzick model (a risk assessment model) the patient's lifetime risk is 1.1% and her 10 year risk is 0.0%. According to the ACR, ACS, and NCCN guidelines, an annual breast MRI exam along with mammogram is recommended if the patient's lifetime risk is 20% or greater. This exam was interpreted at Station ID: [id number]. NOTE: For mammograms, a report in lay terms will be sent to the patient. Approximately 15% of breast malignancies will not be visualized mammographically. In the management of a palpable breast mass, a negative mammogram must not discourage biopsy of a clinically suspicious lesion. Electronically Signed By: Willie beltran/belen:08/15/2024 09:53:18 letter sent: Normal Exam ACR BI-RADS Category 2: Benign
== END ==
PROVIDERS: PCP Internal Medicine; Referring Provider Internal Medicine; Visit Provider Internal Medicine
DX: Z12.31 Encounter for screening mammogram for malignant neoplasm of breast (principal); R92.333 Mammographic heterogeneous density, bilateral breasts
CPT/HCPCS: 77063; 77067

== ENCOUNTER → 2025-01-24 15:36 | Outpatient (CLI) | payer MEDICARE, SELFPAY ==
[2025-01-24 16:24] LABS: Alanine Aminotransferase 20 IU/L (<35); Albumin 4.7 g/dL (3.5-5.0); Albumin Globulin Ratio 1.8 (1.0-2.8); Alkaline Phosphatase 81 U/L (38-126); Aspartate Aminotransferase 28 IU/L (14-36); Blood Urea Nitrogen 20 mg/dL (7-17); Calcium 9.7 mg/dL (8.4-10.2); Carbon Dioxide 31 mmol/L (22-32); Chloride 90 mmol/L (98-107); Estimated Glomerular Filt Rate > 60 mL/min (>60); Globulin 2.6 g/dL (1.7-4.1); Glucose 107 mg/dL (80-110); HEMOLYSIS < 15 (0-50); Sodium 129 mmol/L (137-145); Total Protein 7.3 g/dL (6.3-8.2)
== END ==
PROVIDERS: PCP Internal Medicine; Referring Provider Internal Medicine; Visit Provider Internal Medicine
DX: I10 Essential (primary) hypertension (principal)
CPT/HCPCS: 36415; 80053

== ENCOUNTER → 2025-05-14 07:55 | Outpatient (CLI) | payer MEDICARE, SELFPAY ==
--- NOTE | 2025-05-14 07:57 | DI.ECHO.S_ITS ---
[facility]---------+ [facility] : : [address] : : [place] : : [id number] : : Phone: [phone] Echocardiogram Report + + :Name: RAAD BROWN Study Date: 05/14/2025 Height: 68 in : :Hospital ReadingLocation: Weight: 149 lb : : Gender: Female BSA: 1.8 m2 : :: 1940 Age: 84 yrs BP: 170/76 mmHg: :Reason For Study: HYPERTENSION : :Ordering Physician: EVA DUARTE Performed By: Dede Barrientos : :Referring: EVA DUARTE : + + Interpretation Summary 1. The left ventricular contractility is normal. Estimate ejection fraction is greater than 55%. However there was dyssynchrony of septal contraction. No LVH. Indeterminate diastolic function. 2. The right ventricular contractility is normal. 3. Mild left atrial enlargement. 4. Mild to moderate mitral regurgitation without obvious prolapse. 5. Trace to mild tricuspid regurgitation with estimated pulmonary systolic artery pressures of 23 mmHg. 6. Mild pulmonic insufficiency. 7. No obvious intracardiac shunts. 8. No obvious intracardiac masses nor thrombi. 9. No hemodynamically significant pericardial effusion. 10. Low right-sided filling pressures. Conclusion: Normal biventricular systolic function with mild to moderate valvular insufficiencies. Procedure: A two-dimensional transthoracic echocardiogram with color flow and Doppler was performed. The study quality was technically adequate. There is no prior echocardiogram noted for this patient. The patient was in sinus bradycardia with heart rates between 44-58 bpm during the exam. Left Ventricle: The left ventricle is normal in size and wall thickness. The ejection fraction is estimated to be 55-60%. Diastolic parameters suggest a relaxation abnormality of the left ventricle, consistent with probable normal filling pressures. Right Ventricle: The right ventricle is normal in size and function. Atria: The left atrium is mildly dilated. Right atrial size is normal. There is no Doppler evidence for an interatrial shunt. Mitral Valve: The mitral valve leaflets appear to open well. There is mild to moderate mitral regurgitation. There are multiple regurgitant jets present. Aortic Valve: The aortic valve is trileaflet. The aortic valve opens well. There is no aortic valve stenosis. No aortic regurgitation is present. Tricuspid Valve: The tricuspid valve leaflets are thin and pliable. There is mild tricuspid regurgitation. The right ventricular systolic pressure is estimated to be at least 23 mmHg based on an estimated right atrial pressure of 3 mm Hg. Pulmonic Valve: The pulmonic valve leaflets are thin and pliable; valve motion is normal. There is mild pulmonic regurgitation. Great Vessels: The aortic root is normal size. The dimensions of the ascending aorta are normal. The IVC is of normal diameter and collapses greater than 50% with a sniff. This suggests a low right atrial pressure of 3 mm Hg. Pericardium/ Pleura There is no pericardial effusion. There is no pleural effusion. MMode/2D Measurements & Calculations LVIDd: 5.1 cm LVOT diam: 2.1 cm LVIDs: 3.5 cm Ao root diam: 3.0 cm FS: 30.4 % asc Aorta Diam: 3.1 cm IVSd: 0.71 cm Ao Arch Diam (Prox Trans): 2.1 cm LVPWd: 0.78 cm LV celaya. diameter/BSA (cm/m^2): 2.8 LV sys. diameter/BSA (cm/m^2): 2.0 LA A2 area: 24.2 cm2 RA long axis: 4.3 cm LA A4 area: 16.5 cm2 RA area: 15.0 cm2 LA length (vol): 5.3 cm RA vol: 44.8 ml LA vol: 64.2 ml RA : 24.8 ml/m2 LA vol index: 35.6 ml/m2 IVC diam: 2.0 cm RVD1 (basal): 3.8 cm RVD2 (mid): 3.3 cm TAPSE: 1.9 cm Doppler Measurements & Calculations Ao V2 max: 155.3 cm/sec LVOT Max Raheem: 86.9 cm/sec Ao V2 mean: 106.0 cm/sec LV V1 max P.0 mmHg Ao max P.6 mmHg LV V1 VTI: 21.7 cm Ao mean P.0 mmHg CLAU(I,D): 2.1 cm2 Ao V2 VTI: 36.0 cm CLAU(V,D): 1.9 cm2 sev ratio: 0.60 CLAU indexed to BSA (cm^2/m^2): 1.2 MV E max raheem: 63.7 cm/sec TR max raheem: 222.2 cm/sec MV A max raheem: 75.8 cm/sec TR max P.7 mmHg MV E/A: 0.84 PA V2 max: 104.9 cm/sec Med Peak E' Raheem: 4.3 cm/sec PA V2 mean: 72.5 cm/sec E/E' med: 14.7 PA mean P.4 mmHg Lat Peak E' Raheem: 9.9 cm/sec PA pr(Accel): 3.2 mmHg E/E' lat: 6.5 E/e' average: 10.6 MV dec time: 0.30 sec SV(ZHENG): 75.0 ml Reading Physician:DILEEP
== END ==
LOC: ECHO 07:56
PROVIDERS: PCP Internal Medicine; Referring Provider Internal Medicine; Visit Provider Internal Medicine
DX: I08.1 Rheumatic disorders of both mitral and tricuspid valves (principal); R09.89 Other specified symptoms and signs involving the circulatory and respiratory systems; R00.1 Bradycardia, unspecified
CPT/HCPCS: 93306

== ENCOUNTER 2025-05-27 16:34 | Emergency (ER) | payer MEDICARE, SELFPAY ==
[2025-05-27] VITALS (15 sets, daily range): BP systolic 128–213; BP diastolic 77–133; PULSE 59–78; RESP 16–24; TEMP 36.7; O2SAT 96–99; BMI 22.0
--- NOTE | 2025-05-27 16:43 | EKG_ITS ---
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
--- NOTE | 2025-05-27 16:43 | DI.RAD.S_ITS ---
PROCEDURE: XR CHEST 1V INDICATIONS: Chest Pain TECHNIQUE: One view of the chest was acquired. COMPARISON: [facility], CR, XR CHEST 1V, 11/04/2021, 10:00. FINDINGS: Surgical changes and devices: None. Lungs and pleura: Lungs are clear. No pleural effusions or pneumothorax. Mediastinum: Mediastinal contours appear normal. Heart size is enlarged. Bones and chest wall: No suspicious bony lesions. Overlying soft tissues appear unremarkable. IMPRESSION: No acute pulmonary process. Dictated by: Dottie Judge M.D. on 05/27/2025 at 17:18 Approved by: Dottie Judge M.D. on 05/27/2025 at 17:18
[2025-05-27] MEDS: ASPIRIN 81 MG CHEW TAB 324 MG PO (16:46)
--- NOTE | 2025-05-27 16:54 | EKG_ITS ---
[place] [address] [place] [address] Test Date: 2025-05-27 Pat Name: Santana Wilkinson Department: 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
[2025-05-27 16:58] LABS: Add Manual Diff / Slide Review NO; Hematocrit 49.0 % (36-46); Hemoglobin 16.8 g/dL (12.0-16.0); Lymphocytes Absolute Auto 2000 /uL (1100-4500); Mean Corpuscular HGB Conc 34.2 % (30-36); Mean Corpuscular Hemoglobin 30.4 PG (26-34); Mean Corpuscular Volume 88.9 fL (80-100); Platelet Count 260 X10^3/uL (150-400)
[2025-05-27 17:05] LABS: INR 1.0 (0.9-1.3); Prothrombin Time 11.6 SECONDS (9.4-12.5)
[2025-05-27 17:08] LABS: PTT Partial Thromboplastin Tim 30 SECONDS (25.1-36.5)
[2025-05-27 17:09] LABS: Alanine Aminotransferase 23 IU/L (<35); Albumin 4.8 g/dL (3.5-5.0); Albumin Globulin Ratio 1.5 (1.0-2.8); Alkaline Phosphatase 90 U/L (38-126); Blood Urea Nitrogen 18 mg/dL (7-17); Calcium 9.5 mg/dL (8.4-10.2); Carbon Dioxide 29 mmol/L (22-32); Chloride 96 mmol/L (98-107); Creatine Kinase 79 U/L (30-135); Estimated Glomerular Filt Rate > 60 mL/min (>60); Globulin 3.2 g/dL (1.7-4.1); Glucose 138 mg/dL (70-99); HEMOLYSIS 20 (0-50); Lipase 71 U/L (23-300); Magnesium 2.2 mg/dL (1.6-2.3); Potassium 4.3 mmol/L (3.4-5.1); Sodium 134 mmol/L (137-145); Total Protein 8.0 g/dL (6.3-8.2)
[2025-05-27 17:20] LABS: NT-proBNP (BNP-Adult 18+) 1580 pg/mL (<450); Troponin I 0.013 ng/mL (0.01-0.034)
--- NOTE | 2025-05-27 18:37 | EKG_ITS ---
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
--- NOTE | 2025-05-27 18:43 | ED_ITS ---
<Statement entered by Solomon Carpenter DO - 05/27/25 19:51> Dr. Carpenter: I was immediately available in the department for consultation. I did not actually see the patient. HPI - Chest Pain General Chief Complaint: Chest Pain Stated Complaint: Feeling pressure in chest. Time Seen by Provider: 05/27/25 17:03 Source: patient Mode of arrival: Ambulatory Limitations: no limitations History of Present Illness HPI narrative: 84-year-old female with past medical history hypertension, left bundle branch block, PVC, history of colon cancer in remission presents to the ED with 2 days of chest pressure. Patient states that she has been feeling intermittent chest pressure over the last 2 days. In the ED, patient states that her symptoms have resolved. No fever, chills, shortness of breath, nausea, vomiting, abdominal pain, lightheadedness, dizziness, syncope. Pain does not radiate. Patient does not have a significant history of GERD. Patient sees PCP Dr. Mendoza who has referred her to block hand Dr. Newman regarding her uncontrolled hypertension. Patient has had adverse effect/allergic reactions to several antihypertensives, which made it challenging to control patient's blood pressure. Patient is unable to tolerate amlodipine, hydrochlorothiazide, spironolactone, lisinopril. Patient is currently on atenolol and losartan. Patient saw block hand, had an echocardiogram on 05/14/2025. Related Data Previous Rx's ?Medication ?Instructions ?Recorded losartan 50 mg tablet 100 mg (2 x 50 mg) PO DAILY #180 11/19/24 tabs atenolol 50 mg tablet 25 mg (1/2 x 50 mg) PO QDAY #90 05/22/25 tabs Allergies Allergy/AdvReac Type Severity Reaction Status Date / Time Iodine and Iodide Containing Allergy Mild Verified 05/27/25 16:43 Produc (IODINE AND IODIDE CONTAINING PRODUC) amlodipine AdvReac Severe severe Verified 05/27/25 16:43 edema hydrochlorothiazide AdvReac Severe severe Verified 05/27/25 16:43 hypokalemia spironolactone AdvReac Severe leg Verified 05/27/25 16:43 weakness lisinopril AdvReac Intermediate Hives Verified 05/27/25 16:43 Review of Systems Constitutional Constitutional: Denies chills, Denies fatigue, Denies fever(s), Denies frequent falls, Denies lethargy and Denies weakness Eyes Eyes: Denies change in vision, Denies eye discharge, Denies irritation and Denies loss of vision ENT Ears, Nose, Mouth, and Throat: Denies change in voice, Denies dizziness, Denies neck pain, Denies sore throat and Denies throat swelling Cardiovascular Cardiovascular: Reports chest pain, Denies irregular heart rhythm, Denies lightheadedness, Denies palpitations, Denies dyspnea, Denies dyspnea on exertion and Denies orthopnea Respiratory Respiratory: Denies cough, Denies dyspnea, Denies dyspnea on exertion and Denies wheezing Gastrointestinal Gastrointestinal: Denies abdominal pain, Denies change in bowel habits, Denies diarrhea, Denies nausea and Denies vomiting Musculoskeletal Musculoskeletal: Denies neck pain and Denies numbness Integumentary/Breasts Skin/Breast: Denies pruritus, Denies erythema, Denies rash and Denies wounds Neurologic Neurologic: Denies behavioral changes, Denies confusion, Denies dizziness, Denies frequent falls, Denies loss of vision, Denies numbness and Denies weakness Psychiatric Psychiatric: Denies anxiety, Denies behavioral changes, Denies confusion, Denies depression, Denies homicidal ideation and Denies suicidal ideation Endocrine Endocrine: Denies fatigue, Denies flushing and Denies palpitations Hematologic/Lymphatic Hematologic/Lymphatic: Denies easy bruising Allergic/Immunologic Allergic/Immunologic: Denies urticaria, Denies throat swelling and Denies wheezing Patient History Medical History Osteoarthritis of fingers of both hands COVID-19 Grade I diastolic dysfunction Left bundle branch block History of colon cancer, stage III (~12/2015) Vitamin D deficiency [place] of foot 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 Mixed hyperlipidemia (12/08/15) Essential hypertension (12/08/15) PVC (premature ventricular contraction) Surgical History S/P bilateral salpingo-oophorectomy (~05/2008) S/P right hemicolectomy (~05/2008) Status post biopsy (08/26/14) Family History Brother Colon cancer Social History marital status: household members: spouse lives independently: Yes occupational status: previously employed Smoking Status: Never smoker alcohol intake: current Smoking Status: Never smoker alcohol intake frequency: holidays/special occasions only Exam Narrative Exam Narrative: Const General:?cooperative, healthy appearing and comfortable HENOH Head:?normal to inspection Ears:?hearing grossly normal bilaterally Nose:?external nose normal Face and sinus:?normal facial exam and sinuses nontender Mouth:?oral mucosae normal Throat:?posterior oropharynx normal Eyes General:?appearance normal, both eyes and all related structures Neck Neck:?normal visual inspection and no lymphadenopathy noted Resp Effort & Inspection:?normal respiratory effort Auscultation:?clear to auscultation bilaterally Cardio Rate:?regular rate Rhythm:?regular rhythm Neuro General:?patient alert, patient awake and patient oriented x3 Initial Vital Signs Initial Vital Signs: Vital Signs Temperature 98.0 F 05/27/25 16:38 Pulse Rate 62 05/27/25 16:38 Respiratory Rate 18 05/27/25 16:38 Blood Pressure 208/98 H 05/27/25 16:38 Pulse Oximetry 98 05/27/25 16:38 Oxygen Delivery Method Room Air 05/27/25 16:38 Course Orders Ordered: ED Orders 05/27/25 16:43 XR chest 1V Stat EKG-12 Lead Stat 05/27/25 16:50 Complete Blood Count AUTO DIFF Stat Comprehensive Metabolic Panel Stat Lipase Stat Magnesium Stat NT-proBNP (BNP-Adult 18+) Stat PTT Partial Thromboplastin Jori Stat Prothrombin Time INR Stat Troponin & CK Cardiac Panel Stat 05/27/25 16:54 EKG-12 Lead Routine 05/27/25 18:37 EKG-12 Lead Stat 05/27/25 18:40 Troponin I Stat Discontinued Medications Aspirin (Aspirin 81 Mg Chew Tab) 324 mg PO NOW ONE Stop: 05/27/25 16:44 Last Admin: 05/27/25 16:46 Dose: 324 mg Documented By: VANNESA Vital Signs Vital signs: Vital Signs - 8 hr 05/27/25 16:38 05/27/25 16:52 05/27/25 16:58 Temperature 98.0 F Pulse Rate 62 70 Respiratory Rate 18 Blood Pressure 208/98 H 128/103 H Pulse Oximetry 98 99 Oxygen Delivery Method Room Air 05/27/25 16:58 05/27/25 17:00 05/27/25 17:00 Temperature Pulse Rate 71 67 Respiratory Rate 20 23 Blood Pressure 149/81 H Pulse Oximetry 99 99 Oxygen Delivery Method 05/27/25 17:30 05/27/25 17:31 05/27/25 17:31 Temperature Pulse Rate 59 L 63 Respiratory Rate 17 20 Blood Pressure 172/77 H Pulse Oximetry 99 99 Oxygen Delivery Method 05/27/25 18:00 05/27/25 18:00 05/27/25 18:17 Temperature Pulse Rate 65 72 Respiratory Rate 24 19 Blood Pressure 180/133 H Pulse Oximetry 99 99 Oxygen Delivery Method 05/27/25 18:18 05/27/25 18:18 05/27/25 18:21 Temperature Pulse Rate 78 Respiratory Rate 24 Blood Pressure 197/83 H 200/83 H Pulse Oximetry 98 Oxygen Delivery Method 05/27/25 18:21 05/27/25 18:30 05/27/25 18:30 Temperature Pulse Rate 72 68 Respiratory Rate 19 21 Blood Pressure 193/82 H Pulse Oximetry 98 98 Oxygen Delivery Method 05/27/25 19:00 05/27/25 19:01 05/27/25 19:01 Temperature Pulse Rate 64 71 Respiratory Rate 22 20 Blood Pressure 194/98 H Pulse Oximetry 96 97 Oxygen Delivery Method Room Air MDM - Chest Pain Lab Data 05/27/25 16:50 05/27/25 16:50 Labs: Lab Results 05/27/25 05/27/25 Range/Units 16:50 18:40 WBC 5.9 (4.5-11.0) X10^3/uL RBC 5.51 H (4.0-5.2) X10^6/uL Hgb 16.8 H (12.0-16.0) g/dL Hct 49.0 H (36-46) % MCV 88.9 (80-100) fL MCH 30.4 (26-34) PG MCHC 34.2 (30-36) % RDW 13.1 (11.6-14.8) % Plt Count 260 (150-400) X10^3/uL Neut % (Auto) 54.2 (50-75) % Lymph % (Auto) 34.4 (25-40) % [place] % (Auto) 9.7 (3-14) % Eos % (Auto) 1.1 L (2-4) % Baso % (Auto) 0.6 (0-2) % Neut # (Auto) 3200 (2719-9068) /uL Lymph # (Auto) 2000 (7269-7948) /uL [place] # (Auto) 600 (0-900) /uL Eos # (Auto) 100 (0-450) /uL Baso # (Auto) 0 (0-100) /uL PT 11.6 (9.4-12.5) SECONDS INR 1.0 (0.9-1.3) APTT 30 (25.1-36.5) SECONDS Sodium 134 L (137-145) mmol/L Potassium 4.3 (3.4-5.1) mmol/L Chloride 96 L (98-107) mmol/L Carbon Dioxide 29 (22-32) mmol/L BUN 18 H (7-17) mg/dL Creatinine 0.63 (0.52-1.04) mg/dL Estimated GFR > 60 (>60) mL/min BUN/Creatinine Ratio 28.6 H (6-22) Glucose 138 H (70-99) mg/dL Calcium 9.5 (8.4-10.2) mg/dL Magnesium 2.2 (1.6-2.3) mg/dL Total Bilirubin 1.2 (0.2-1.3) mg/dL AST 33 (14-36) IU/L ALT 23 (<35) IU/L Alkaline Phosphatase 90 (38-126) U/L Total Creatine Kinase 79 (30-135) U/L Troponin I 0.013 0.034 (0.01-0.034) ng/mL NT-Pro-B Natriuret Pep 1580 H (<450) pg/mL Total Protein 8.0 (6.3-8.2) g/dL Albumin 4.8 (3.5-5.0) g/dL Globulin 3.2 (1.7-4.1) g/dL Albumin/Globulin Ratio 1.5 (1.0-2.8) Lipase 71 (23-300) U/L MDM Narrative Medical decision making narrative: 84-year-old female with past medical history hypertension, left bundle branch block, PVC, history of colon cancer in remission presents to the ED with 2 days of chest pressure. ACS workup initiated. Chest x-ray shows no acute pulmonary process. EKG is sinus rhythm with premature atrial complexes. Left bundle branch block. No acute ST-T changes. Troponin within normal limits. BNP within normal limits per age. All other labs within normal limits. Will obtain repeat troponin, EKG. Will reassess. Repeat troponin is 0.034, still WNL. Reassessed patient, patient is without any chest pain or other symptoms. Joint decision making with patient resulted in patient discharge home with follow-up with Cardiology as soon as possible. Patient agrees to call her block hand tomorrow to schedule further workup. ED return precautions were discussed with patient. Patient verbalized understanding. Medical records reviewed: Yes Discharge Plan Departure Patient Disposition: Home Clinical Impression: Chest pain Qualifiers: Chest pain type: unspecified Qualified Code(s): R07.9 - Chest pain, unspecified Instructions: DI for Chest Pain Activity Restrictions/Additional Instructions: You were evaluated in the emergency department today for chest pressure. Your workup was normal. Your troponin levels did fluctuate while in the ED, however they were within normal limits. It is also reassuring that your chest pain has resolved since you came to the ED. Please call your block hand Dr. Newman tomorrow to schedule further evaluation. It is important to address your elevated blood pressure and to undergo further cardiac testing. Please return to the ED or call 911 if you experience chest pain or shortness of breath. Prescriptions: No Action losartan 50 mg tablet 100 mg PO DAILY Qty: 180 3RF atenolol 50 mg tablet 25 mg PO QDAY Qty: 90 3RF Referrals: Silviano Mendoza MD [Primary Care Provider, Internal Medicine] Stand Alone Forms: Patient Portal/API
[2025-05-27 19:09] LABS: Troponin I 0.034 ng/mL (0.01-0.034)
== END 2025-05-27 19:43 | disposition home or self-care (01) ==
PROVIDERS: Family Medicine; Emergency Provider Student in an Organized Health Care Education/Training Program; PCP Internal Medicine
DX: R07.9 Chest pain, unspecified (principal)
CPT/HCPCS: 36415; 71045; 80053; 82550; 83690; 83735; 83880; 84484; 85025; 85610; 85730; 93005; 99284

== ENCOUNTER 2025-06-09 04:25 | Emergency (ER) | payer MEDICARE, SELFPAY ==
[2025-06-09] VITALS (37 sets, daily range): BP systolic 86–200; BP diastolic 48–86; PULSE 47–75; RESP 15–25; TEMP 36.8; O2SAT 96–100; BMI 21.6
--- NOTE | 2025-06-09 04:32 | DI.RAD.S_ITS ---
PROCEDURE: XR CHEST 1V INDICATIONS: Chest Pain TECHNIQUE: One view of the chest was acquired. COMPARISON: [facility], CR, XR CHEST 1V, 11/04/2021, 10:00. [facility], CR, XR CHEST 1V, 05/27/2025, 16:46. FINDINGS: Surgical changes and devices: None. Lungs and pleura: Mild generalized interstitial prominence can be seen which is similar to priors. The lungs are mildly hyperexpanded. No pleural effusions or pneumothorax. Mediastinum: The aorta is tortuous and demonstrates calcification. Heart size is at the upper limits of normal. Bones and chest wall: No suspicious bony lesions. Age-appropriate bony degenerative changes are seen. Overlying soft tissues appear unremarkable. IMPRESSION: Heart size at the upper limits of normal with mild interstitial prominence. The appearance is similar to the prior examination. Baseline parenchymal coarsening is suspected. A mild degree superimposed edema is possible. Please consider short-term follow-up, if clinically appropriate. Note: No significant discrepancy from the preliminary report. Dictated by: Pablo Ruiz M.D. on 06/09/2025 at 8:26 Approved by: Pablo Ruiz M.D. on 06/09/2025 at 8:28
--- NOTE | 2025-06-09 04:39 | ED_ITS ---
HPI - General Adult <Tristian Marsh MD - Last Filed: 06/09/25 14:47> General Chief complaint: Chest Pain Stated complaint: chest pain, back pain Time Seen by Provider: 06/09/25 04:30 History of Present Illness HPI narrative: 84-year-old female with no known history of coronary artery disease, seen here for chest discomfort recent weeks reportedly with negative workup, has history of hypertension, awakened 3 this morning with substernal chest discomfort that radiates straight back, no treatments tried, still present, associated with some burping. No nausea or vomiting. No diaphoresis. No abdominal discomfort, diarrhea, black or red stools. No recent cough or shortness of breath. Admits to recent chest discomfort with exertion on walking a few days ago, that seemed to improve with rest. She had outpatient echocardiogram with her assistant surveyor Dr. Duarte, reportedly reassuring inappropriate for age per patient report, no specific follow recalled. She takes occasional Tums for possible stomach acid issues, no other antacid therapy recent/chronic. Related Data Previous Rx's ?Medication ?Instructions ?Recorded losartan 50 mg tablet 100 mg (2 x 50 mg) PO DAILY #180 11/19/24 tabs atenolol 50 mg tablet 25 mg (1/2 x 50 mg) PO QDAY #90 05/22/25 tabs Allergies Allergy/AdvReac Type Severity Reaction Status Date / Time Iodine and Iodide Containing Allergy Mild Verified 06/09/25 04:43 Produc (IODINE AND IODIDE CONTAINING PRODUC) amlodipine AdvReac Severe severe Verified 06/09/25 04:43 edema hydrochlorothiazide AdvReac Severe severe Verified 06/09/25 04:43 hypokalemia spironolactone AdvReac Severe leg Verified 06/09/25 04:43 weakness lisinopril AdvReac Intermediate Hives Verified 06/09/25 04:43 Patient History <Tristian Marsh MD - Last Filed: 06/09/25 14:47> Medical History Osteoarthritis of fingers of both hands COVID-19 Grade I diastolic dysfunction Left bundle branch block History of colon cancer, stage III (~12/2015) Vitamin D deficiency 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 Mixed hyperlipidemia (12/08/15) Essential hypertension (12/08/15) PVC (premature ventricular contraction) Surgical History S/P bilateral salpingo-oophorectomy (~05/2008) S/P right hemicolectomy (~05/2008) Status post biopsy (08/26/14) Family History Brother Colon cancer Social History marital status: household members: spouse lives independently: Yes occupational status: previously employed alcohol intake: current alcohol intake frequency: holidays/special occasions only Exam <Tristian Marsh MD - Last Filed: 06/09/25 14:47> Narrative Exam Narrative: GENERAL: Well-developed patient, in mild distress. HEAD: Atraumatic. Normocephalic. EYES: Pupils equal round and reactive. Extraocular motions intact. No scleral icterus. No injection or drainage. ENT: Nose without bleeding, purulent drainage. Throat without erythema, tonsillar hypertrophy or exudate. Airway patent. NECK: Trachea midline. Non tender CARDIOVASCULAR: Regular rate and rhythm without murmurs, gallops, or rubs. RESPIRATORY: Clear to auscultation. Breath sounds equal bilaterally. No wheezes, rales, or rhonchi. GASTROINTESTINAL: Abdomen soft, non-tender, nondistended. EXTREMITIES: No edema or joint tenderness. BACK: Nontender without deformity or crepitance. No flank tenderness. NEURO: AOx3. Motor functions grossly nonfocal. SKIN: No rash or erythema of visible areas Initial Vital Signs Initial Vital Signs: Vital Signs Temperature 98.2 F 06/09/25 04:42 Pulse Rate 67 06/09/25 04:42 Respiratory Rate 06/09/25 04:42 Blood Pressure 200/86 H 06/09/25 04:42 Pulse Oximetry 99 06/09/25 04:42 Oxygen Delivery Method Room Air 06/09/25 04:42 <Steven Cali MD - Last Filed: 06/09/25 13:18> Initial Vital Signs Initial Vital Signs: Vital Signs Temperature 98.2 F 06/09/25 04:42 Pulse Rate 67 06/09/25 04:42 Respiratory Rate 19 06/09/25 04:42 Blood Pressure 200/86 H 06/09/25 04:42 Pulse Oximetry 99 06/09/25 04:42 Oxygen Delivery Method Room Air 06/09/25 04:42 Scores <Tristian Marsh MD - Last Filed: 06/09/25 14:47> HEART Score Heart Score history: Slightly Suspicious Heart Score EKG: Non-Specific repolarization disturbance Heart Score Age: > or = 65 years old Heart Score risk factors: 1-2 risk factors Heart Score troponin: < or = to normal limit Heart Score Total: 4 <Steven Cali MD - Last Filed: 06/09/25 13:18> HEART Score Heart Score Total: 4 Course <Tristian Marsh MD - Last Filed: 06/09/25 14:47> Orders Ordered: ED Orders 06/09/25 06:30 Troponin I Stat 06/09/25 06:41 EKG-12 Lead Stat Heparin Sodium/Dextrose (Heparin Drip) 25,000 unit in 500 mls @ 15.458 mls/hr IV CONT JG; Protocol Last Admin: 06/09/25 14:00 Dose: 12 units/kg/hr, 15.458 mls/hr Documented By: VANNESA Co-signed By: [facility] Nitroglycerin (Nitroglycerin 0.4 Mg Sl Tab) 0.4 mg SL [id number] PRN PRN Reason: Chest Pain Last Admin: 06/09/25 05:47 Dose: 0.4 mg Documented By: Admin: 06/09/25 05:31 Dose: 0.4 mg Documented By: MICHAEL Discontinued Medications Aspirin (Aspirin 81 Mg Chew Tab) 324 mg PO NOW ONE Stop: 06/09/25 04:33 Last Admin: 06/09/25 05:03 Dose: 324 mg Documented By: MICHAEL Al Hydrox/Mg Hydrox/Simethicone 30 ml/ Lidocaine HCl 15 ml 0 ml PO NOW ONE Stop: 06/09/25 04:55 Last Admin: 06/09/25 05:04 Dose: 45 ml Documented By: MICHAEL Furosemide (Furosemide 40 Mg/4 Ml Vial) 20 mg IV NOW ONE Stop: 06/09/25 08:40 Last Admin: 06/09/25 09:15 Dose: 20 mg Documented By: VANNESA Heparin Sodium (Porcine) (Heparin 5,000 Unit/Ml Vial) 4,000 unit 60 unit/kg (4000 unit) IV NOW ONE Stop: 06/09/25 13:53 Last Admin: 06/09/25 14:00 Dose: 4,000 unit Documented By: VANNESA Sodium Chloride (Normal Saline 0.9%) 1,000 mls @ 1,000 mls/hr IV BOLUS ONE Stop: 06/09/25 06:53 Last Infusion: 06/09/25 06:41 Dose: Infused Documented By: Admin: 06/09/25 05:58 Dose: 1,000 mls/hr Documented By: MICHAEL Morphine Sulfate (Morphine 2 Mg/Ml Inj) 2 mg IV NOW ONE Stop: 06/09/25 06:42 Last Admin: 06/09/25 06:44 Dose: 2 mg Documented By: MICHAEL Morphine Sulfate (Morphine 2 Mg/Ml Inj) 2 mg IV NOW ONE Stop: 06/09/25 13:12 Last Admin: 06/09/25 14:00 Dose: 2 mg Documented By: VANNESA Ondansetron HCl (Ondansetron 4 Mg/2 Ml Inj) 4 mg IV NOW ONE Stop: 06/09/25 05:55 Last Admin: 06/09/25 05:58 Dose: 4 mg Documented By: MICHAEL Pantoprazole Sodium (Pantoprazole 40 Mg Vial) 40 mg IV NOW ONE Stop: 06/09/25 04:55 Last Admin: 06/09/25 05:06 Dose: 40 mg Documented By: MICHAEL Vital Signs Vital signs: Vital Signs - 8 hr 06/09/25 07:00 06/09/25 07:01 06/09/25 07:01 Pulse Rate 56 L 57 L Respiratory Rate 17 24 Blood Pressure 153/67 H Pulse Oximetry 100 98 06/09/25 07:30 06/09/25 07:30 06/09/25 08:00 Pulse Rate 58 L 59 L Respiratory Rate 19 22 Blood Pressure 164/69 H Pulse Oximetry 99 98 06/09/25 08:00 06/09/25 08:30 06/09/25 08:30 Pulse Rate 60 Respiratory Rate 18 Blood Pressure 163/67 H 147/67 H Pulse Oximetry 98 06/09/25 09:00 06/09/25 09:00 06/09/25 09:30 Pulse Rate 63 73 Respiratory Rate 23 19 Blood Pressure 158/65 H Pulse Oximetry 99 99 06/09/25 09:30 06/09/25 09:42 06/09/25 09:42 Pulse Rate 75 Respiratory Rate 18 Blood Pressure 173/73 H 156/69 H Pulse Oximetry 97 06/09/25 10:00 06/09/25 10:00 06/09/25 10:30 Pulse Rate 64 65 Respiratory Rate 16 18 Blood Pressure 171/70 H Pulse Oximetry 99 99 06/09/25 10:31 06/09/25 10:31 06/09/25 11:00 Pulse Rate 68 Respiratory Rate 19 Blood Pressure 145/67 H 161/65 H Pulse Oximetry 98 06/09/25 11:00 06/09/25 11:30 06/09/25 11:30 Pulse Rate 63 63 Respiratory Rate 18 15 Blood Pressure 164/72 H Pulse Oximetry 99 98 06/09/25 12:00 06/09/25 12:00 06/09/25 12:30 Pulse Rate 63 Respiratory Rate 19 Blood Pressure 164/70 H 169/72 H Pulse Oximetry 99 06/09/25 12:30 06/09/25 13:00 06/09/25 13:00 Pulse Rate 62 70 Respiratory Rate 18 23 Blood Pressure 175/74 H Pulse Oximetry 99 100 06/09/25 13:30 06/09/25 14:00 06/09/25 14:04 Pulse Rate 68 66 Respiratory Rate 20 18 Blood Pressure 178/74 H Pulse Oximetry 99 99 06/09/25 14:04 06/09/25 14:15 06/09/25 14:15 Pulse Rate 69 67 Respiratory Rate 19 22 Blood Pressure 175/75 H Pulse Oximetry 98 98 <Steven Cali MD - Last Filed: 06/09/25 13:18> Course Course Narrative: Patient will have a cardiac workup. First set of troponins is elevated. Second set of troponins is still elevated but trending downward. We will go ahead and start the patient on a heparin drip. Spoke with assistant surveyor over at [facility] Dr. Winchester who said she would be appropriate for transfer. Orders Ordered: ED Orders 06/09/25 06:30 Troponin I Stat 06/09/25 06:41 EKG-12 Lead Stat Heparin Sodium/Dextrose (Heparin Drip) 25,000 unit in 500 mls @ 15.458 mls/hr IV CONT JG; Protocol Last Admin: 06/09/25 14:00 Dose: 12 units/kg/hr, 15.458 mls/hr Documented By: VANNESA Co-signed By: ROSALINA Nitroglycerin (Nitroglycerin 0.4 Mg Sl Tab) 0.4 mg SL [id number] PRN PRN Reason: Chest Pain Last Admin: 06/09/25 05:47 Dose: 0.4 mg Documented By: Admin: 06/09/25 05:31 Dose: 0.4 mg Documented By: MICHAEL Discontinued Medications Aspirin (Aspirin 81 Mg Chew Tab) 324 mg PO NOW ONE Stop: 06/09/25 04:33 Last Admin: 06/09/25 05:03 Dose: 324 mg Documented By: MICHAEL Al Hydrox/Mg Hydrox/Simethicone 30 ml/ Lidocaine HCl 15 ml 0 ml PO NOW ONE Stop: 06/09/25 04:55 Last Admin: 06/09/25 05:04 Dose: 45 ml Documented By: MICHAEL Furosemide (Furosemide 40 Mg/4 Ml Vial) 20 mg IV NOW ONE Stop: 06/09/25 08:40 Last Admin: 06/09/25 09:15 Dose: 20 mg Documented By: VANNESA Heparin Sodium (Porcine) (Heparin 5,000 Unit/Ml Vial) 4,000 unit 60 unit/kg (4000 unit) IV NOW ONE Stop: 06/09/25 13:53 Last Admin: 06/09/25 14:00 Dose: 4,000 unit Documented By: VANNESA Sodium Chloride (Normal Saline 0.9%) 1,000 mls @ 1,000 mls/hr IV BOLUS ONE Stop: 06/09/25 06:53 Last Infusion: 06/09/25 06:41 Dose: Infused Documented By: Admin: 06/09/25 05:58 Dose: 1,000 mls/hr Documented By: MICHAEL Morphine Sulfate (Morphine 2 Mg/Ml Inj) 2 mg IV NOW ONE Stop: 06/09/25 06:42 Last Admin: 06/09/25 06:44 Dose: 2 mg Documented By: MICHAEL Morphine Sulfate (Morphine 2 Mg/Ml Inj) 2 mg IV NOW ONE Stop: 06/09/25 13:12 Last Admin: 06/09/25 14:00 Dose: 2 mg Documented By: VANNESA Ondansetron HCl (Ondansetron 4 Mg/2 Ml Inj) 4 mg IV NOW ONE Stop: 06/09/25 05:55 Last Admin: 06/09/25 05:58 Dose: 4 mg Documented By: Bianka Pantoprazole Sodium (Pantoprazole 40 Mg Vial) 40 mg IV NOW ONE Stop: 06/09/25 04:55 Last Admin: 06/09/25 05:06 Dose: 40 mg Documented By: MICHAEL Consultations Consultation #1: Dr winchester assistant surveyor consulted at [facility] who suggested patient be transferred to [facility] for possible catheterization. Consultation #2: Dr. John hospitalist at [facility] accepted patient. Time: 13:14 Vital Signs Vital signs: Vital Signs - 8 hr 06/09/25 07:00 06/09/25 07:01 06/09/25 07:01 Pulse Rate 56 L 57 L Respiratory Rate 17 24 Blood Pressure 153/67 H Pulse Oximetry 100 98 06/09/25 07:30 06/09/25 07:30 06/09/25 08:00 Pulse Rate 58 L 59 L Respiratory Rate 19 22 Blood Pressure 164/69 H Pulse Oximetry 99 98 06/09/25 08:00 06/09/25 08:30 06/09/25 08:30 Pulse Rate 60 Respiratory Rate 18 Blood Pressure 163/67 H 147/67 H Pulse Oximetry 98 06/09/25 09:00 06/09/25 09:00 06/09/25 09:30 Pulse Rate 63 73 Respiratory Rate 23 19 Blood Pressure 158/65 H Pulse Oximetry 99 99 06/09/25 09:30 06/09/25 09:42 06/09/25 09:42 Pulse Rate 75 Respiratory Rate 18 Blood Pressure 173/73 H 156/69 H Pulse Oximetry 97 06/09/25 10:00 06/09/25 10:00 06/09/25 10:30 Pulse Rate 64 65 Respiratory Rate 16 18 Blood Pressure 171/70 H Pulse Oximetry 99 99 06/09/25 10:31 06/09/25 10:31 06/09/25 11:00 Pulse Rate 68 Respiratory Rate 19 Blood Pressure 145/67 H 161/65 H Pulse Oximetry 98 06/09/25 11:00 06/09/25 11:30 06/09/25 11:30 Pulse Rate 63 63 Respiratory Rate 18 15 Blood Pressure 164/72 H Pulse Oximetry 99 98 06/09/25 12:00 06/09/25 12:00 06/09/25 12:30 Pulse Rate 63 Respiratory Rate 19 Blood Pressure 164/70 H 169/72 H Pulse Oximetry 99 06/09/25 12:30 06/09/25 13:00 06/09/25 13:00 Pulse Rate 62 70 Respiratory Rate 18 23 Blood Pressure 175/74 H Pulse Oximetry 99 100 06/09/25 13:30 06/09/25 14:00 06/09/25 14:04 Pulse Rate 68 66 Respiratory Rate 20 18 Blood Pressure 178/74 H Pulse Oximetry 99 99 06/09/25 14:04 06/09/25 14:15 06/09/25 14:15 Pulse Rate 69 67 Respiratory Rate 19 22 Blood Pressure 175/75 H Pulse Oximetry 98 98 Medical Decision Making <Tristian Marsh MD - Last Filed: 06/09/25 14:47> Lab Data Lab results reviewed: Yes I reviewed the patient's lab results. Lab results narrative: White blood cell count 6300, hemoglobin 16.9, platelets adequate. Glucose 111. Normal renal function, serum CO2, potassium level. Sodium 136 slight decreased. Liver functions unremarkable. Troponin 0.062 indeterminate range. BNP 2020 elevated. 06/09/25 04:35 06/09/25 04:35 Labs: Lab Results 06/09/25 06/09/25 Range/Units 04:35 06:30 WBC 6.3 (4.5-11.0) X10^3/uL RBC 5.45 H (4.0-5.2) X10^6/uL Hgb 16.9 H (12.0-16.0) g/dL Hct 48.5 H (36-46) % MCV 88.9 (80-100) fL MCH 31.0 (26-34) PG MCHC 34.9 (30-36) % RDW 13.7 (11.6-14.8) % Plt Count 233 (150-400) X10^3/uL Neut % (Auto) 40.2 L (50-75) % Lymph % (Auto) 45.7 H (25-40) % Wayne % (Auto) 10.7 (3-14) % Eos % (Auto) 2.5 (2-4) % Baso % (Auto) 0.9 (0-2) % Neut # (Auto) 2600 (8771-8785) /uL Lymph # (Auto) 2900 (2460-2003) /uL Wayne # (Auto) 700 (0-900) /uL Eos # (Auto) 200 (0-450) /uL Baso # (Auto) 100 (0-100) /uL PT 11.2 (9.4-12.5) SECONDS INR 1.0 (0.9-1.3) APTT 29 (25.1-36.5) SECONDS Sodium 136 L (137-145) mmol/L Potassium 4.0 (3.4-5.1) mmol/L Chloride 100 (98-107) mmol/L Carbon Dioxide 29 (22-32) mmol/L BUN 15 (7-17) mg/dL Creatinine 0.69 (0.52-1.04) mg/dL Estimated GFR > 60 (>60) mL/min BUN/Creatinine Ratio 21.7 (6-22) Glucose 111 H (70-99) mg/dL Calcium 9.6 (8.4-10.2) mg/dL Magnesium 2.0 (1.6-2.3) mg/dL Total Bilirubin 1.0 (0.2-1.3) mg/dL AST 29 (14-36) IU/L ALT 21 (<35) IU/L Alkaline Phosphatase 89 (38-126) U/L Total Creatine Kinase 51 (30-135) U/L Troponin I 0.062 H 0.045 H (0.01-0.034) ng/mL NT-Pro-B Natriuret Pep 2020 H (<450) pg/mL Total Protein 7.6 (6.3-8.2) g/dL Albumin 4.6 (3.5-5.0) g/dL Globulin 3.0 (1.7-4.1) g/dL Albumin/Globulin Ratio 1.5 (1.0-2.8) Lipase 65 (23-300) U/L ECG Data Attestation: I personally reviewed and interpreted this ECG as follows: Interpretation: 0439, normal sinus rhythm with sinus arrhythmia, left bundle branch block. WA 190, QRS 152, QTC 457. Similar pattern noted 05/27/2025. 0652, sinus rhythm with first-degree AV block again demonstrated, ventricular rate 61, WA 210. Left bundle branch block again demonstrated, same morphology as prior study this visit. QRS 142, QTC 477. [facility] Narrative Medical decision making narrative: 84-year-old female with no known history of coronary artery disease, has left bundle branch block on EKG known, recent evaluation with serial troponins chest pain 2 weeks ago went home, had exertional dyspnea 2 days ago did not seek care, awakened with substernal chest discomfort 3:00 a.m. this morning, no diaphoresis. Chest clear, no cough, afebrile, sirs screen negative. No lower extremity edema or tenderness. EKG, chest x-ray, labs pending. Heart score =4 Chest x-ray, Impression: ?There is hyperaeration with diffuse bilateral fine reticular opacities and emphysematous change. Likely chronic interstitial lung disease.? No mention of any pneumothorax. See tele radiology report. EKG shows sinus rhythm with left bundle branch block pattern, no change from recent study 05/27/2025. Initial lab data: White blood cell count 6300, hemoglobin 16.9, platelets adequate. Glucose 111. Normal renal function, serum CO2, potassium level. Sodium 136 slight decreased. Liver functions unremarkable. Troponin 0.062 indeterminate range. BNP 2020 elevated. Troponin repeat later this morning. GI cocktail had no effect, sublingual nitroglycerin resolved her chest discomfort, systolic blood pressure decreased to 80, IV fluid bolus. BP improved. 0700, recurrence of chest discomfort, repeat EKG shows same bundle branch block morphology, IV morphine 2 mg dose. Repeat troponin is still pending at this time. Signed out to Dr Cali. patient accept at [facility] , will transfer, start heparin drip <Steven Cali MD - Last Filed: 06/09/25 13:18> Differential Diagnosis Differential Diagnosis: nstemi vs stemi vs acute coronary syndrome Lab Data Labs: Lab Results 06/09/25 06/09/25 Range/Units 04:35 06:30 WBC 6.3 (4.5-11.0) X10^3/uL RBC 5.45 H (4.0-5.2) X10^6/uL Hgb 16.9 H (12.0-16.0) g/dL Hct 48.5 H (36-46) % MCV 88.9 (80-100) fL MCH 31.0 (26-34) PG MCHC 34.9 (30-36) % RDW 13.7 (11.6-14.8) % Plt Count 233 (150-400) X10^3/uL Neut % (Auto) 40.2 L (50-75) % Lymph % (Auto) 45.7 H (25-40) % Wayne % (Auto) 10.7 (3-14) % Eos % (Auto) 2.5 (2-4) % Baso % (Auto) 0.9 (0-2) % Neut # (Auto) 2600 (1650-5418) /uL Lymph # (Auto) 2900 (4245-3827) /uL Wayne # (Auto) 700 (0-900) /uL Eos # (Auto) 200 (0-450) /uL Baso # (Auto) 100 (0-100) /uL PT 11.2 (9.4-12.5) SECONDS INR 1.0 (0.9-1.3) APTT 29 (25.1-36.5) SECONDS Sodium 136 L (137-145) mmol/L Potassium 4.0 (3.4-5.1) mmol/L Chloride 100 (98-107) mmol/L Carbon Dioxide 29 (22-32) mmol/L BUN 15 (7-17) mg/dL Creatinine 0.69 (0.52-1.04) mg/dL Estimated GFR > 60 (>60) mL/min BUN/Creatinine Ratio 21.7 (6-22) Glucose 111 H (70-99) mg/dL Calcium 9.6 (8.4-10.2) mg/dL Magnesium 2.0 (1.6-2.3) mg/dL Total Bilirubin 1.0 (0.2-1.3) mg/dL AST 29 (14-36) IU/L ALT 21 (<35) IU/L Alkaline Phosphatase 89 (38-126) U/L Total Creatine Kinase 51 (30-135) U/L Troponin I 0.062 H 0.045 H (0.01-0.034) ng/mL NT-Pro-B Natriuret Pep 2020 H (<450) pg/mL Total Protein 7.6 (6.3-8.2) g/dL Albumin 4.6 (3.5-5.0) g/dL Globulin 3.0 (1.7-4.1) g/dL Albumin/Globulin Ratio 1.5 (1.0-2.8) Lipase 65 (23-300) U/L MDM Narrative Medical decision making narrative: 84-year-old female with no known history of coronary artery disease, has left bundle branch block on EKG known, recent evaluation with serial troponins chest pain 2 weeks ago went home, had exertional dyspnea 2 days ago did not seek care, awakened with substernal chest discomfort 3:00 a.m. this morning, no diaphoresis. Chest clear, no cough, afebrile, sirs screen negative. No lower extremity edema or tenderness. EKG, chest x-ray, labs pending. Heart score =4 Chest x-ray, Impression: ?There is hyperaeration with diffuse bilateral fine reticular opacities and emphysematous change. Likely chronic interstitial lung disease.? No mention of any pneumothorax. See tele radiology report. EKG shows sinus rhythm with left bundle branch block pattern, no change from recent study 05/27/2025. Initial lab data: White blood cell count 6300, hemoglobin 16.9, platelets adequate. Glucose 111. Normal renal function, serum CO2, potassium level. Sodium 136 slight decreased. Liver functions unremarkable. Troponin 0.062 indeterminate range. BNP 2020 elevated. Troponin repeat later this morning. GI cocktail had no effect, sublingual nitroglycerin resolved her chest discomfort, systolic blood pressure decreased to 80, IV fluid bolus. 0700, recurrence of chest discomfort, repeat EKG shows same bundle branch block morphology, IV morphine 2 mg dose. Repeat troponin is still pending at this time. Signed out to Dr Cali. patient accept at [facility] , will transfer, start heparin drip Discharge Plan Departure Patient Disposition: Xfer Acute [facility] Clinical Impression: Acute non-ST elevation myocardial infarction (NSTEMI) Prescriptions: No Action losartan 50 mg tablet 100 mg PO DAILY Qty: 180 3RF atenolol 50 mg tablet 25 mg PO QDAY Qty: 90 3RF Referrals: Silviano Mendoza MD [Primary Care Provider, Internal Medicine]
--- NOTE | 2025-06-09 04:39 | EKG_ITS ---
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
[2025-06-09 04:50] LABS: Add Manual Diff / Slide Review NO; Hematocrit 48.5 % (36-46); Hemoglobin 16.9 g/dL (12.0-16.0); Lymphocytes Absolute Auto 2900 /uL (1100-4500); Mean Corpuscular HGB Conc 34.9 % (30-36); Mean Corpuscular Hemoglobin 31.0 PG (26-34); Mean Corpuscular Volume 88.9 fL (80-100); Platelet Count 233 X10^3/uL (150-400)
[2025-06-09 04:58] LABS: INR 1.0 (0.9-1.3); Prothrombin Time 11.2 SECONDS (9.4-12.5)
[2025-06-09 05:00] LABS: PTT Partial Thromboplastin Tim 29 SECONDS (25.1-36.5)
[2025-06-09 05:03] LABS: Alanine Aminotransferase 21 IU/L (<35); Albumin 4.6 g/dL (3.5-5.0); Albumin Globulin Ratio 1.5 (1.0-2.8); Alkaline Phosphatase 89 U/L (38-126); Blood Urea Nitrogen 15 mg/dL (7-17); Calcium 9.6 mg/dL (8.4-10.2); Carbon Dioxide 29 mmol/L (22-32); Chloride 100 mmol/L (98-107); Creatine Kinase 51 U/L (30-135); Estimated Glomerular Filt Rate > 60 mL/min (>60); Globulin 3.0 g/dL (1.7-4.1); Glucose 111 mg/dL (70-99); HEMOLYSIS < 15 (0-50); Lipase 65 U/L (23-300); Magnesium 2.0 mg/dL (1.6-2.3); Potassium 4.0 mmol/L (3.4-5.1); Sodium 136 mmol/L (137-145); Total Protein 7.6 g/dL (6.3-8.2)
[2025-06-09] MEDS: ASPIRIN 81 MG CHEW TAB 324 MG PO (05:03)
[2025-06-09] MEDS: MAG HYDROX/ALUMINUM/SIMETH SUS 30 ML, LIDOCAINE VISCOUS 2% 15 ML PO (05:04)
[2025-06-09] MEDS: PANTOPRAZOLE 40 MG VIAL IV (05:06)
[2025-06-09 05:15] LABS: NT-proBNP (BNP-Adult 18+) 2020 pg/mL (<450); Troponin I 0.062 ng/mL (0.01-0.034)
[2025-06-09] MEDS: NITROGLYCERIN 0.4 MG SL TAB SL ×2 (05:31→05:47)
[2025-06-09] MEDS: SODIUM CHLORIDE 0.9% 1,000 ML 1000 ML IV (05:58)
[2025-06-09] MEDS: ONDANSETRON 4 MG/2 ML INJ IV (05:58)
[2025-06-09] MEDS: MORPHINE 2 MG/ML INJ IV ×2 (06:44→14:00)
--- NOTE | 2025-06-09 06:52 | EKG_ITS ---
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
[2025-06-09 07:05] LABS: Troponin I 0.045 ng/mL (0.01-0.034)
[2025-06-09] MEDS: FUROSEMIDE 40 MG/4 ML VIAL 20 MG IV (09:15)
[2025-06-09] MEDS: HEPARIN DRIP 25,000 UNIT/500 ML IV.SOLN 15.458 UNIT IV (14:00)
[2025-06-09] MEDS: HEPARIN 5,000 UNIT/ML VIAL 4000 UNIT IV (14:00)
--- NOTE | 2025-06-09 15:09 | PC.NURSE ---
Heparin running at time of transport 12u/kg/hr @ 15mls/hr. Heparin stopped in JAN. Charge aware w/ cosign.
== END 2025-06-09 15:00 | disposition short-term general hospital (02) ==
PROVIDERS: Emergency Medicine; Emergency Provider Family Medicine; PCP Internal Medicine
DX: I21.4 Non-ST elevation (NSTEMI) myocardial infarction (principal); I44.7 Left bundle-branch block, unspecified
CPT/HCPCS: 36415; 71045; 80053; 82550; 83690; 83735; 83880; 84484; 85025; 85610; 85730; 93005; 96361; 96365; 96375; 96376; 99284; 99285; J1644; J1938; J2270; J2405; J2470

== ENCOUNTER → 2025-06-18 11:09 | Outpatient (CLI) | payer MEDICARE, SELFPAY ==
[2025-06-18 12:54] LABS: Blood Urea Nitrogen 15 mg/dL (7-17); Calcium 9.7 mg/dL (8.4-10.2); Carbon Dioxide 28 mmol/L (22-32); Chloride 91 mmol/L (98-107); Estimated Glomerular Filt Rate > 60 mL/min (>60); Glucose 107 mg/dL (70-99); Potassium 4.9 mmol/L (3.4-5.1); Sodium 129 mmol/L (137-145)
[2025-06-18 12:55] LABS: HEMOLYSIS 73 (0-50)
== END ==
PROVIDERS: PCP Internal Medicine; Referring Provider Internal Medicine; Visit Provider Internal Medicine
DX: I10 Essential (primary) hypertension (principal); I25.10 Atherosclerotic heart disease of native coronary artery without angina pectoris
CPT/HCPCS: 36415; 80048

== ENCOUNTER 2025-08-19 08:30 | Outpatient (RCR) | payer MEDICARE, SELFPAY | END 2025-08-19 10:30 | LOC: CAR 08:30 | PROVIDERS: Family Provider Internal Medicine; PCP Internal Medicine; Referring Provider Internal Medicine; Visit Provider Internal Medicine | DX: I25.10 Atherosclerotic heart disease of native coronary artery without angina pectoris (principal); Z95.5 Presence of coronary angioplasty implant and graft | CPT/HCPCS: 93798 ==

== ENCOUNTER → 2025-09-09 08:07 | Outpatient (CLI) | payer MEDICARE, SELFPAY ==
--- NOTE | 2025-09-09 08:09 | DI.ECHO.S_ITS ---
[facility]---------+ [facility] : : [address] : : [place] : : [id number] : : Phone: [phone] Echocardiogram Report + + :Name: RAAD BROWN Study Date: 09/09/2025 Height: 68 in : :[facility] ReadingLocation: Weight: 144 lb : : Gender: Female BSA: 1.8 m2 : :: 1940 Age: 85 yrs BP: 173/105 mmHg: :Reason For Study: HYPERTENSION : :Ordering Physician: VAIBHAV, : :DANNI Performed By: Richi Palmer : :Referring: [id number] : + + Interpretation Summary - The left ventricular contractility is mildly compromised. Estimated ejection fraction is approximately 45-50%. There is dyssynchrony of the septum. Mild concentric LVH. Indeterminant diastolic function. - The right ventricular contractility is normal. - Mild left atrial enlargement. All other cardiac chambers are of normal size. - Trace to mild mitral regurgitation. - No obvious intracardiac shunts. - No obvious intracardiac masses nor thrombi. - No hemodynamically significant pericardial effusion. - Low right-sided filling pressures. Conclusion: Mildly compromised left ventricular systolic function with no significant valvular abnormalities. When compared with previous echocardiogram, there does appear to be a slight improvement in the left ventricular systolic function. Procedure: A two-dimensional transthoracic echocardiogram with color flow and Doppler was performed. The study quality was technically good. Comparison is made with the echocardiogram of 06/11/2025. Left Ventricle: The left ventricle is normal in size. Left ventricular wall thickness is mildly increased. There is no ventricular septal defect visualized. The ejection fraction is estimated to be 45-50%. Diastolic function is indeterminate. Right Ventricle: The right ventricle is normal in size and function. Atria: The left atrium is mildly dilated. Right atrial size is normal. Mitral Valve: The mitral valve leaflets appear normal. There is no evidence of stenosis, fluttering, or prolapse. There is trace mitral regurgitation. Aortic Valve: The aortic valve is trileaflet. The aortic valve opens well. No aortic regurgitation is present. Tricuspid Valve: The tricuspid valve leaflets are thin and pliable. There is trace tricuspid regurgitation. The right ventricular systolic pressure is estimated to be at least 29 mmHg based on an estimated right atrial pressure of 3 mm Hg. Pulmonic Valve: The pulmonic valve is not well seen, but is grossly normal. There is trace pulmonic regurgitation. Great Vessels: The aortic root is normal size. The dimensions of the ascending aorta are normal. The pulmonary artery is normal size. The IVC is of normal diameter and collapses greater than 50% with a sniff. This suggests a low right atrial pressure of 3 mm Hg. Pericardium/ Pleura There is no pericardial effusion. There is no pleural effusion. MMode/2D Measurements & Calculations LVIDd: 4.7 cm LVOT diam: 2.0 cm LVIDs: 3.5 cm Ao root diam: 2.8 cm FS: 25.0 % asc Aorta Diam: 3.0 cm EPSS: 0.72 cm IVSd: 1.1 cm LVPWd: 1.0 cm LV celaya. diameter/BSA (cm/m^2): 2.6 LV sys. diameter/BSA (cm/m^2): 2.0 LA A2 area: 25.5 cm2 RA long axis: 4.4 cm LA A4 area: 21.4 cm2 RA area: 15.5 cm2 LA length (vol): 5.8 cm RA vol: 45.9 ml LA vol: 79.4 ml RA : 25.8 ml/m2 LA vol index: 44.7 ml/m2 IVC diam: 1.4 cm RVD1 (basal): 3.2 cm RVD2 (mid): 2.5 cm TAPSE: 2.1 cm Doppler Measurements & Calculations Ao V2 max: 148.1 cm/sec LVOT Max Raheem: 82.4 cm/sec Ao V2 mean: 105.6 cm/sec LV V1 max P.7 mmHg Ao max P.8 mmHg LV V1 VTI: 17.9 cm Ao mean P.0 mmHg CLAU(I,D): 1.6 cm2 Ao V2 VTI: 32.9 cm CLAU(V,D): 1.7 cm2 sev ratio: 0.54 CLAU indexed to BSA (cm^2/m^2): 0.91 MV E max raheem: 62.4 cm/sec TR max raheem: 256.8 cm/sec MV A max raheem: 69.5 cm/sec TR max P.4 mmHg MV E/A: 0.90 PA V2 max: 140.7 cm/sec Med Peak E' Raheem: 4.7 cm/sec PA V2 mean: 91.2 cm/sec E/E' med: 13.4 PA mean P.8 mmHg Lat Peak E' Raheem: 7.2 cm/sec PA pr(Accel): 55.0 mmHg E/E' lat: 8.6 E/e' average: 11.0 MV dec time: 0.31 sec SV(LVOT): 53.4 ml Reading Physician:BRE
== END ==
PROVIDERS: Family Provider Internal Medicine; PCP Internal Medicine; Referring Provider Physician Assistant; Visit Provider Physician Assistant
DX: I10 Essential (primary) hypertension (principal); I25.10 Atherosclerotic heart disease of native coronary artery without angina pectoris; I25.5 Ischemic cardiomyopathy
CPT/HCPCS: 93306